=== PATIENT | male | born 1960 | race Caucasian/White ===

== ENCOUNTER 2024-11-18 11:17 | Day surgery (SDC) | payer BC, SELFPAY ==
--- NOTE | 2024-11-17 07:00 | EKG_ITS ---
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
[2024-11-17 16:32] VITALS: BMI 36.2
[2024-11-18] VITALS (14 sets, daily range): BP systolic 128–162; BP diastolic 107–126; PULSE 102–138; RESP 11–22; TEMP 36.6; O2SAT 92–95
[2024-11-18] MEDS: MIDAZOLAM INJ 1 MG/ML VIAL 2 ML 4 MG IV (12:08)
[2024-11-18] MEDS: fentaNYL CIT INJ 50 mCg/ML AMP 2ML 100 MCG IVP (12:08)
--- NOTE | 2024-11-18 13:19 | ESOP_ITS ---
RE: PREETI FRIEDMAN : 1960 DATE OF OPERATION: 11/18/2024 PROCEDURE PERFORMED: 1. Synchronized cardioversion. 2. Conscious sedation 30 minutes duration. DIAGNOSIS: Symptomatic atrial fibrillation. HISTORY AND INDICATIONS: The patient is a 64-year-old male with a history of hypertension. He has been having recurrent episodes of palpitations, shortness of breath, and new onset atrial fibrillation about 4 weeks ago. The patient was started on anticoagulation with Eliquis. I also gave him Cardizem 120 mg and metoprolol 25 mg b.i.d. for rate control. Continues to remain symptomatic with atrial fibrillation, moderate rapid ventricular response. Synchronized cardiovascular was recommended because of symptomatic atrial fibrillation. DESCRIPTION OF PROCEDURE: The patient was brought to the cardiac laboratory. Informed consent was obtained and the patient was given IV sedation with a total of 4 mg Versed and 100 mcg fentanyl, conscious sedation. Synchronized cardioversion performed by 125 joules of energy did not convert, subsequently 200 joules of energy given x2. Remain in atrial fibrillation rate 110 beats per minute. SUMMARY OF FINDINGS: Unsuccessful cardioversion. Inability to convert the patient back to sinus rhythm. RECOMMENDATIONS: Increase metoprolol dose to 50 mg twice daily and Cardizem CD to 240 mg daily for good rate control. Also, we will follow amiodarone 200 mg daily. We will recommend the patient to have ablation procedure for atrial fibrillation. We will refer to water jet operator Dr. Wiggins in [place]. DT: 12:32:12 TT: 13:17:00 Ref: [id number] - TID: [id number]
--- NOTE | 2024-11-18 16:36 | PC.NURSE ---
1326 patient is awake, alert, breathing unlabored, s/p cardioversion by Dr. Tran, Report received from Lyndsey NEW. Blood pressure elevated, Dr. Marc jose MD already talked to patient about increasing beta mello and deltiazem dose, no new orders at this time. OK to discharge patient home after 2hr recovery. 1455 patient is awake, alert, breathing unlabored, meets discharge criteria, discharge instructions given by Roxanne NEW to patient and family, pt discharged home in wheelchair with all belongings.
== END 2024-11-18 14:45 | disposition home or self-care (01) ==
LOC: S2EX 11:18 → SCCL 11:20
PROVIDERS: PCP Internal Medicine; Referring Provider Internal Medicine Cardiovascular Disease; Visit Provider Internal Medicine Cardiovascular Disease
PROC: 5A2204Z Restoration of Cardiac Rhythm, Single (ICD-10-PCS; CPT 92960; principal; 2024-11-18 11:30)
DX: I48.91 Unspecified atrial fibrillation (principal); Z79.01 Long term (current) use of anticoagulants; I10 Essential (primary) hypertension; Z01.810 Encounter for preprocedural cardiovascular examination
CPT/HCPCS: 92960; 93005; 99152; J2250; J3010

== ENCOUNTER 2024-12-03 17:31 | Inpatient (IN) | payer BC, SELFPAY ==
[2024-12-03] VITALS (22 sets, daily range): BP systolic 134–185; BP diastolic 109–152; PULSE 109–149; RESP 17–94; TEMP 37.5–37.7; O2SAT 95–96; BMI 35.2
--- NOTE | 2024-12-03 17:36 | EKG_ITS ---
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
--- NOTE | 2024-12-03 17:50 | XR_ITS ---
Examination: AP chest single view TECHNIQUE: AP portable upright chest single view Date and time: December 03, 2024, 1826 hours Comparison June 26, 2023 INDICATIONS: Shortness of breath beginning 2 days ago. FINDINGS: Mild CHF Moderate enlargement cardiac contour. Prominent vascular congestion with perihilar edema Edema and/or pneumonia at the right lung base Moderate osteopenia IMPRESSION: Mild CHF Edema versus pneumonia at the right lung base
--- NOTE | 2024-12-03 18:25 | PD.EDADULT ---
ED General RME/HPI General Chief complaint: Shortness of Breath/Dyspnea Stated complaint: SOB SWEATING FAST HEART RATE Time Seen by Provider: 12/03/24 17:47 Arrival date/time: 12/03/24 17:31 RME / HPI RME / HPI narrative: 64-year-old male with a history of atrial fibrillation, difficult to control, frequent RVR, failed cardiac ablation, who presents to the emergency department with persistent shortness of breath and tachycardia. He was seen with at his shake loader (Dr. Alysha Tran) office where echocardiogram shows new onset CHF. He also notes epigastric pain, epigastric discomfort. Shortness of breath is worse with lying. He has trace lower extremity edema as well. He currently denies chest pain, however if he has noted chest pain on occasion for the last several days. MD complaint: Shortness of breath Related Data Home Medications ?Medication ?Instructions ?Recorded ?Confirmed apixaban 5 mg tablet (Eliquis) 5 mg PO BID 11/17/24 11/17/24 Previous Rx's ?Medication ?Instructions ?Recorded diltiazem HCl 240 mg 240 mg PO QAM #90 caps 11/18/24 capsule,extended release 24 hr metoprolol tartrate 50 mg tablet 50 mg PO BID #90 tabs 11/18/24 Allergies Allergy/AdvReac Type Severity Reaction Status Date / Time NKA* Allergy Uncoded 12/03/24 17:34 Review of Systems Review of Systems Systems Reviewed: All systems reviewed, normal except as documented ED Exam Narrative Physical exam: GENERAL APPEARANCE: AxOx4, moderate ill-appearing, moderate respiratory distress, speaking for 5 word sentences HEENT: NC, AT. MMM. No sclericterus, no pallor HEART: Tachycardic and irregular, normal S1/S2, no m/r/g LUNGS: CTAB, moving air well. No crackles or wheezes are heard. ABDOMEN: Soft, nontender, nondistended with good bowel sounds heard. EXTREMITIES: Without cyanosis, clubbing, bilateral 2+ pitting edema. MUSCULOSKELETAL: FROM of all major joints, no chest tenderness NEUROLOGICAL: Grossly nonfocal. Alert and oriented, moving all 4 extremities. CN not formally tested but appear grossly intact. Observed to ambulate with normal gait. Skin: Warm and dry without any rash. Course Quality Measures none Orders Category Date Time Status COVID-19 Screening Questionnaire NOW Care 12/03/24 17:52 Active Decision to Admit X1 Care 12/03/24 17:52 Active EKG (ED ONLY) *Do not use* NOW Care 12/03/24 17:36 Completed EKG (ED Only) Stat Exams 12/03/24 17:36 Draft XR chest 1V Stat Exams 12/03/24 17:50 Ordered CBC Stat Lab 12/03/24 18:07 Received CMP [Comprehensive Metabolic Panel] Stat Lab 12/03/24 18:07 Received Magnesium Stat Lab 12/03/24 18:07 Received Magnesium Stat Lab 12/03/24 18:07 Received Partial Thromboplastin Time Stat Lab 12/03/24 18:07 Received Prothrombin Time with INR Stat Lab 12/03/24 18:07 Received Troponin I Stat Lab 12/03/24 18:07 Received Amiodarone 150 mg Ivpb [Nexterone Ivpb] Med 12/03/24 17:49 Discontinued 150 mg in 100 ml IV 600 mls/hr Amiodarone 360 mg Ivpb [Nexterone Ivpb] Med 12/03/24 23:48 Active 360 mg in 200 ml IV 16.667 mls/hr Amiodarone 360 mg Ivpb [Nexterone Ivpb] Med 12/03/24 17:48 Active 360 mg in 200 ml IV 33.333 mls/hr Bumetanide Inj [Bumex Inj] Med 12/03/24 17:49 Discontinued 2 mg IVP X1 ONE mg Hyd/Al Hyd/Roberto Susp [Maalox Susp] Med 12/03/24 18:02 Discontinued 30 ml PO X1 ONE Vital Signs Vital signs: Vital Signs Temperature 99.5 F 12/03/24 17:49 Pulse Rate 140 H 12/03/24 17:49 Respiratory Rate 20 12/03/24 17:49 Blood Pressure 134/112 H 12/03/24 17:49 Pulse Oximetry (%) 95 12/03/24 17:49 Oxygen Delivery Method Room Air 12/03/24 17:49 Discharge Plan Plan Patient Disposition: Admit Acute Care w/in Hospital Prescriptions/Referrals Prescriptions/Med Rec: No Action Eliquis 5 mg tablet 5 mg PO BID metoprolol tartrate 50 mg tablet 50 mg PO BID Qty: 90 2RF diltiazem HCl 240 mg capsule,extended release 24hr 240 mg PO QAM Qty: 90 2RF Referrals: Bruce Lorenzana MD [Primary Care Provider] - In 1 week Problem List Clinical Impression: Congestive heart failure, Atrial fibrillation with RVR Patient/Caregiver Discharge Instructions Education Materials: ED Atrial Fibrillation, ED CHF Left Side Print Language: Luxembourgish Stand Alone Forms: Rajani Award Info., Patient Portal Info Letter MDM Narrative [facility] hospital course: Mr. Owens is well-known to our cardiology team and Dr. Alysha Tran who is brought in for persistent atrial fibrillation with RVR, failed cardiac ablation, recent electrocardioversion now an office visit has new onset HF which bedside ultrasound shows an EF of 20%. He has orthopnea and shortness of breath consistent with new onset CHF. Patient was also seen immediately by Dr. Tran bedside and will take over care. EKG shows no acute findings, vital signs are otherwise stable. Laboratory testing was ordered, Cardiology recommendation. Started on amiodarone drip and diuresed with Bumex as per cardiology recommendation. Patient will be admitted to stepdown telemetry, and results and management has been handed over to cardiology Clinical Information Provided by patient and spouse other: Dr. Rj Tran Medical Records Reviewed [facility] Meds/Rx Considered, not Ordered None Labs/Rad/Tests considered, not Ordered None Chronic Illness/Social Conditions which may negatively complicate care or outcome(s)-explain: None or not applicable EKG EKG Interpretation narrative: Atrial fibrillation with RVR at 141, no acute ST or T wave changes Lab Interpretation Labs: see narrative above Imaging Imaging interpretation: see narrative above Medication Administration(s) Medication Administration History Amiodarone HCl/Dextrose (Nexterone Ivpb) 360 mg in 200 mls @ 33.333 mls/hr IV .Q6H ONE Stop: 12/03/24 23:47 Amiodarone HCl/Dextrose (Nexterone Ivpb) 360 mg in 200 mls @ 16.667 mls/hr IV .Q12H SONNY Stop: 12/04/24 23:47 Discontinued Medications Al Hydrox/Mg Hydrox/Simethicone (Mg Hyd/Al Hyd/Roberto (Maalox Reg) Susp 30 Ml Udc) 30 ml PO X1 ONE Stop: 12/03/24 18:03 Bumetanide (Bumetanide Inj 0.25 Mg/Ml Vial 4 Ml) 2 mg IVP X1 ONE Stop: 12/03/24 17:50 Amiodarone HCl/Dextrose (Nexterone Ivpb) 150 mg in 100 mls @ 600 mls/hr IV .Q10M ONE Stop: 12/03/24 17:58 As above Diagnosis Differential diagnosis: New onset CHF, atrial fibrillation with RVR, pneumonia Most likely dx, and/or detailed dx discussion: See below Dispositon Disposition: Admit
[2024-12-03 18:35] LABS: Basophils % (Auto) 1 % (0-2.5); Eosinophils # (Auto) 0.1 Thou/mm3 (0.0-0.5); Eosinophils % (Auto) 1 % (0-10); Hematocrit 41.9 % (41.0-53.0); Hemoglobin 14.5 g/dL (13.5-16.0); Immature Granulocytes % (Auto) 1 % (0-0); Immature Granulocytes Auto 0.07 Thou/mm3 (0.00-0.00); Lymphocytes # (Auto) 1.1 Thou/mm3 (1.0-4.8); Lymphocytes % (Auto) 19 % (10-50); Mean Corpuscular HGB Conc 34.6 g/dl (31.0-37.0); Mean Corpuscular Hemoglobin 31.3 pg (25.0-35.0); Mean Corpuscular Volume 90 fL (80-100); Monocytes # (Auto) 0.5 Thou/mm3 (0.0-0.8); Monocytes % (Auto) 9 % (0-12); Neutrophils # (Auto) 3.9 Thou/mm3 (1.8-7.7); Neutrophils % (Auto) 69 % (37-80); Nucleated Red Blood Cell % 0 /100 WBC (0); Platelet Count 196 Thou/mm3 (140-440); RDW Standard Deviation 49.8 fL (35.1-43.9); Red Blood Count 4.64 Miln/mm3 (4.50-5.90); White Blood Count 5.6 Thou/mm3 (3.8-10.6)
--- NOTE | 2024-12-03 18:44 | ECHO_ITS ---
Transthoracic Echo Report Ht (in): 75 Wt (lb): 282 Exam Location: Echo Lab Status: Emergency Meeting Facilitator: Arline Velez Indications: Procedure Performed: BP: 134 / 112 HR: 140 MEASUREMENTS (Male / Female) Normal Values 2D ECHO LV Diastolic Diameter PLAX 5.8 cm 4.2 - 5.9 / 3.9 - 5.3 cm LV Systolic Diameter PLAX 4.9 cm IVS Diastolic Thickness 1.1 cm 0.6 - 1.0 / 0.6 - 0.9 cm LVPW Diastolic Thickness 1.2 cm 0.6 - 1.0 / 0.6 - 0.9 cm LV Relative Wall Thickness 0.4 LVOT Diameter 2.3 cm LA Volume Index 36.6 cm?/m? 16 - 28 cm?/m? M-MODE Aortic Root Diameter MM 3.1 cm LA Systolic Diameter MM 5.2 cm LA Ao Ratio MM 1.7 AV Cusp Separation MM 2.2 cm DOPPLER AV Peak Velocity 84.1 cm/s AV Peak Gradient 2.8 mmHg AV Mean Gradient 2.0 mmHg AV Velocity Time Integral 14.1 cm LVOT Peak Velocity 56.9 cm/s LVOT Peak Gradient 1.3 mmHg LVOT Velocity Time Integral 11.2 cm LVOT Cardiac Index 2466.4 cm?/min?m? AV Area Cont Eq vti 3.3 cm? AV Area Cont Eq pk 2.8 cm? MV Area PHT 6.5 cm? MR Peak Velocity 305.0 cm/s MR Peak Gradient 37.2 mmHg Mitral E Point Velocity 68.4 cm/s TR Peak Velocity 271.5 cm/s TR Peak Gradient 29.5 mmHg PV Peak Velocity 95.0 cm/s PV Peak Gradient 3.6 mmHg FINDINGS Left Ventricle Dilated left venyricle with normal wall thickness. with severe global hypokinesisThe ejection fraction is visually estimated at 25%. Global left ventricular systolic function is severely decreased. Right Ventricle The right ventricular size is moderately increased. The right ventricular systolic function is mildly decreased. The estimated right ventricular systolic pressure, 48 mmHg. RAP 15. Left Atrium The left atrium is normal by two-dimensional, color flow and Doppler imaging with no structural abnormalities, no thrombus formation present. Right Atrium The right atrium is normal by two-dimensional imaging, color flow and Doppler imaging with no structural abnormalities, no thrombus formation present. Atrial Septum The interatrial septum appears normal with no evidence of a shunt. Aorta The aorta is normal by two-dimensional, color flow and Doppler interrogation. Mitral Valve Moderate mitral regurgitation. Aortic Valve The aortic valve is trileaflet and normal by two-dimensional, color flow and Doppler interrogation. There is no significant aortic valve regurgitation. Tricuspid Valve There is mild to moderate tricuspid valve regurgitation. Pulmonic Valve The pulmonic valve is not well visualized. There is no significant pulmonic valve regurgitation. Vessels Dilated inferior vena cava. Pericardium The pericardium is normal by two-dimensional imaging. There is no significant pericardial effusion. CONCLUSIONS Indication: CHF Dilated left ventrclw with severe global hypokinesis LVEF 25% Left atrium is dilated. The RV size is moderately increased. The RV systolic function is mildly decreased. The estimated RVSP, 48 mmHg. RAP 15. Moderate MR. Mild to moderate TR. Dilated IVC. Ruba Pearson (Electronically Signed) Final Date: 03 December 2024 22:40
[2024-12-03 18:47] LABS: Alanine Aminotransferase 11 U/L (10-49); Albumin, Serum 4.4 gm/dL (3.4-4.8); Albumin/Globulin Ratio 1.8 (1.2-2.2); Alkaline Phosphatase 89 U/L (46-116); Anion Gap 14 (7-16); Aspartate Amino Transferase 21 U/L (0-34); BUN/Creatinine Ratio 17 Ratio (12-20); Bilirubin,Total 1.1 mg/dL (0.3-1.2); Blood Urea Nitrogen 22 mg/dL (9-23); Calcium 9.3 mg/dL (8.3-10.6); Calcium (Corrected) 9.3 mg/dL (8.5-10.1); Chloride 101 mMol/L (98-107); Creatinine (Component) 1.3 mg/dL (0.6-1.3); Estimated Creatinine Clearance 83.8 mL/min (>60); Globulin 2.5 gm/dL (2.3-3.5); Glucose 125 mg/dL (74-106); Magnesium 2.1 mg/dL (1.6-2.6); Osmolality,Calculated 291 (275-295); Potassium 3.4 mMol/L (3.4-5.1); Sodium 144 mMol/L (136-145); Total Protein 6.9 gm/dL (5.7-8.2); eGFR > 60 See Note
[2024-12-03 19:19] LABS: INR 1.2 (0.9-1.3); Partial Thromboplastin Time 27.9 Seconds (22.0-36.0); Prothrombin Time 13.3 Seconds (9.0-12.2)
[2024-12-03] MEDS: MG HYD/AL HYD/SIME (Maalox Reg) SUSP 30 ML UDC PO (19:25)
[2024-12-03] MEDS: DIGOXIN INJ 0.25 MG/ML AMP 2 ML IVP (19:27)
[2024-12-03] MEDS: BUMETANIDE INJ 0.25 MG/ML VIAL 4 ML 2 MG IVP (19:31)
[2024-12-03 19:38] LABS: B-Type Natriuretic Peptide 575 pg/mL (0-100)
[2024-12-03] MEDS: METOPROLOL TARTRATE INJ 1 MG/ML AMP 5 ML 5 MG IVP (19:41)
[2024-12-03] MEDS: AMIODARONE 150 MG IVPB 150 MG/100 ML BAG 600 MG IV (19:44)
[2024-12-03] MEDS: AMIODARONE 360 MG IVPB 360 MG/200 ML BAG 33.333 MG IV (20:03)
--- NOTE | 2024-12-03 20:18 | ESCONSULT_ITS ---
RE: PREETI FRIEDMAN : 1960 DATE OF CONSULTATION: 12/03/2024 CONSULTING PHYSICIANS: Dr. Eugene Gomez, hospitalist. REASON FOR CONSULTATION: Evaluation of shortness of breath and congestive heart failure. HISTORY OF PRESENT ILLNESS: The patient is a 64-year-old male, well-known to me, who has longstanding hypertension for many years and hypercholesterolemia, who had a negative cardiac workup in 03/2024. Ejection fraction of 55%-60% on cardiac echo and negative nuclear scan. Went on to have shoulder replacement surgery in 08/2024 in [facility]. Subsequently, he did well until a month later in October the patient was seen by me in the office in October first week 11/10/2023 with severe shortness of breath and atrial fibrillation with rapid ventricular response. He was given rate control with metoprolol and diltiazem combination and the patient was also attempted cardioversion after 3 weeks of anticoagulation, last week of October, which was unsuccessful. Electrophysiology consult was obtained. Dr. Wiggins in [place] performed ablation for atrial fibrillation on 11/30/2024 at the [facility]. Subsequently, the patient could not convert to sinus rhythm. Atrial fibrillation persisted. The left atrium was dilated, and there was extensive scarring of the left atrium as well. Subsequently, the patient continued to have atrial fibrillation with rapid ventricular response. He was doing well until the last 3 days. He has had severe shortness of breath, unable to sleep, orthopnea, paroxysmal nocturnal dyspnea, and both lower extremities swelling. The patient was discharged home on amiodarone 200 mg twice daily, metoprolol 25 daily, and also was given Eliquis 5 mg twice daily. I saw him in the office today. He was found to be in acute decompensated heart failure with significant jugular venous distention and edema of the feet. I did a bedside echo that showed ejection fraction only 20-25%, dilated left ventricle, and severe global hypokinesis. I SENT HIM_ to the emergency room to start IV amiodarone and IV diuretics and treatment for acute decompensated heart failure. The patient did not have any chest pain. He has some abdominal discomfort and epigastric discomfort intermittently, but never had ischemic heart disease or coronary artery disease. ALLERGIES: NONE. MEDICATIONS: At home, Eliquis 5 mg b.i.d., metoprolol 25 mg daily, and he was on olmesartan, which was discontinued recently. Eliquis 5 mg b.i.d. Diltiazem was also discontinued. He also takes allopurinol 300 mg daily for gout. PAST MEDICAL HISTORY: Hypertension, longstanding gout, and on allopurinol and history of asthma. SURGICAL HISTORY: History of right knee replacement surgery. Recently had shoulder surgery, right shoulder replacement. FAMILY HISTORY: Family history was positive for cardiac arrhythmia. Mother and sister had cardiac arrhythmias. Mother also had cardiac issues. REVIEW OF SYSTEMS: Cardiovascular: Shortness of breath, orthopnea, and paroxysmal nocturnal dyspnea. Atypical chest discomfort. Gastrointestinal: History of abdominal bloating and nausea. Genitourinary: NEGATIVE____. Central Nervous System: No neurological deficits. PHYSICAL EXAMINATION: General: Well nourished, well-built male, alert, awake, in no acute distress. Vital Signs: Weight around 282 pounds. Height 63. Blood pressure 160/100. Pulse rate is 140, irregular atrial fibrillation. Respirations 18. Temperature normal. HEENT: Head is atraumatic, normocephalic. Eyes normal. ENT normal. NECK: Supple. JVD is present, 5 cm above sternal angle. Chest: Symmetric. Lungs: Decreased breath sounds, bilateral crackles at the bases. Heart: S1 and S2 irregular, atrial fibrillation and 2/6 systolic murmur heard. Abdomen: Slightly distended and soft. Extremities: Mild 2+ edema of both feet. Genitourinary and Rectal: Not performed. Neurologic: Alert and oriented x3. No focal deficits. DIAGNOSTIC DATA: Electrocardiogram showed atrial fibrillation with rapid ventricular response and nonspecific ST-T changes. lab Lab data is pending. Lab shows CBC is normal. Chemistry panel shows creatinine 1.3, BUN is 22, potassium 3.4, troponin is 0.45 (slightly elevated). BNP is pending. Chest x-ray showed mild pulmonary congestion. CARDIOMEGALY ASSESSMENT: 1. Acutely decompensated systolic heart failure. Ejection fraction 25% by bedside echo in my office. 2. 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 3. Elevated troponin level, possibly type 2 secondary to heart failure versus acute non-ST segment elevation myocardial infarction. 4. Atrial fibrillation, persistent for more than 2 months, resistant atrial fibrillation, difficult to cardiovert and post ablation remains in atrial fibrillation with rapid ventricular response. 5. Gout. RECOMMENDATIONS: The patient will be admitted on intensive telemetry floor. Serial enzymes will be obtained. Cardiac echo will be obtained for assessment of left ventricular function and mitral and aortic regurgitation. IV amiodarone bolus and protocol. Beta-mello, metoprolol 25 b.i.d. IV metoprolol to be given to reduce the heart rate. I will avoid diltiazem because of low ejection fraction. Start on valsartan 40 mg twice daily, increase to 80 mg twice daily and 160 mg twice daily, depending on the blood pressure readings and low-dose beta-blockers be continued. Digoxin 0.25 mg x1 and if the heart rate does not slow down, we will give one more dose and subsequently 125 mcg daily. iv NITROGLYCERIN and ICU LEVELCARE today We will also add spironolactone 25 mg daily starting tomorrow and monitor the patient closely. Enzymes will be obtained to rule out acute myocardial infarction NSTEMI. The patient probably will require right and left heart catheterization and coronary angiography once heart failure improves. DT: 19:24:36 TT: 20:00:00 Ref: [id number] - TID: [id number] MTDD
[2024-12-03] MEDS: METOPROLOL SUCCINATE XL 25 MG TABCR PO (21:19)
[2024-12-03] MEDS: POTASSIUM CHLORIDE 20 mEq TABCR PO (21:19)
[2024-12-03] MEDS: PANTOPRAZOLE 40 MG TABLET PO (21:19)
[2024-12-03] MEDS: VALSARTAN 40 MG TABLET PO (21:19)
[2024-12-03] MEDS: ENOXAPARIN SOD INJ 100 MG/ML SYRINGE SC (21:20)
--- NOTE | 2024-12-03 21:28 | ESHP_ITS ---
Documentation for date of: 12/03/24 [facility] History of Present Illness Chief complaint: shortness of breath History of present illness: 64-year-old male with past medical history of YONY, asthma, hypertension, A-fib who presented to the ED from Dr. Tran's office for shortness of breath. Apparently patient a few weeks ago had cardioversion due to A-fib however patient did not convert to sinus was then referred to have an ablation which also failed to control the A-fib then had another cardioversion which also failed to convert to sinus. Patient has been having progressive shortness of breath with bilateral leg swelling is unable to lay flat. He also noticed that his lower extremities have been swelling up more pronounced on the left compared to the right. He also endorses that he has been sleeping sitting upright as any tilting of the bed causes him to get short of breath. At this time patient denies headache, blurry vision, chest pain, nausea, vomiting, diarrhea, recent travel, sick contacts. Patient will be admitted for acute CHF exacerbation and the atrial fibrillation with RVR. ED course: ED vitals: BP 134/112, HR 140, saturating 95% on room air ED labs: CBC unremarkable, glucose 125, troponin 0.45, BNP 575, EKG shows A-fib with RVR PMHx: As above SX Hx: Right shoulder surgery, right knee replacement x 2 Social Hx: Denies cigarette use, denies illicit substances including THC, drinks alcohol socially last drink around 2 months ago FH X: Unknown Review of Systems Review of Systems Systems Reviewed: All systems reviewed, normal except as documented Narrative Review of Systems: All 12 systems reviewed and found normal unless otherwise stated in the HPI Exam Vital Signs Temp Pulse Resp BP Pulse Ox O2 Del Method 100 F 109 H 18 165/134 H 96 Room Air 12/03/24 19:08 12/03/24 21:19 12/03/24 19:57 12/03/24 21:19 12/03/24 19:08 12/03/24 19:08 Narrative Exam Physical Exam GENERAL: NAD, AAOx3, obese HEENT: Moist mucosa. Eyes open, symmetrical, & clear CARDIO: Heart RRR, no obvious murmurs PULM: No noted coughing/dyspnea CTA B/L, no R/W/R GI: Abdomen soft, nondistended, no pain on palpation. BSx4 SKIN/MSK/EXT: +2 bilateral lower extremity edema up to the ankle, more swelling in the left lower extremity compared to the right, no pain on palpation. Pedal pulses present B/L NEURO: AAOx3, no focal neuro deficits, able to move all 4 extremities Results: Labs 12/03/24 18:07 12/03/24 18:07 Labs: Short CBC 12/03/24 Range/Units 18:07 WBC 5.6 (3.8-10.6) Thou/mm3 Hgb 14.5 (13.5-16.0) g/dL Hct 41.9 (41.0-53.0) % Plt Count 196 (140-440) Thou/mm3 BMP 12/03/24 18:07 Sodium 144 Potassium 3.4 Chloride 101 Carbon Dioxide 29.0 BUN 22 Creatinine 1.3 Glucose 125 H Calcium 9.3 Cardiac Enzymes 12/03/24 Range/Units 18:07 Troponin I 0.450 H* (0.0-0.045) ng/mL Liver Function 12/03/24 Range/Units 18:07 Total Bilirubin 1.1 (0.3-1.2) mg/dL AST 21 (0-34) U/L ALT 11 (10-49) U/L Alkaline Phosphatase 89 (46-116) U/L Albumin 4.4 (3.4-4.8) gm/dL Quality Measures Quality Measures none Medications Home Medications and Allergies Home Medications ?Medication ?Instructions ?Recorded ?Confirmed ?Type apixaban 5 mg tablet (Eliquis) 5 mg PO BID 11/17/24 History Allergies Allergy/AdvReac Type Severity Reaction Status Date / Time zolpidem (From Ambien) Allergy Mild panic Verified 12/04/24 02:30 attacks NKA* Allergy Uncoded 12/04/24 02:30 Visit Medications Acetaminophen (Acetaminophen 325 Mg Tablet) 650 mg PO Q4HR PRN PRN Reason: PAIN SCALE 1-3 (mild Stop: 01/02/25 18:47 Al Hydrox/Mg Hydrox/Simethicone (Mg Hyd/Al Hyd/Roberto (Maalox Reg) Susp 30 Ml Udc) 30 ml PO Q4HR PRN PRN Reason: Heartburn or Upset Stomach Stop: 01/02/25 18:47 Bumetanide (Bumetanide Inj 0.25 Mg/Ml Vial 4 Ml) 2 mg IVP BID SONNY Stop: 01/03/25 08:59 Digoxin (Digoxin Inj 0.25 Mg/Ml Amp 2 Ml) 0.125 mg IVP QDAY SONNY Stop: 01/03/25 08:59 Enoxaparin Sodium (Enoxaparin Sod Inj 100 Mg/Ml Syringe) 100 mg SC BID SONNY Stop: 12/17/24 20:59 Last Admin: 12/03/24 21:20 Dose: 100 mg Amiodarone HCl/Dextrose (Nexterone Ivpb) 360 mg in 200 mls @ 33.333 mls/hr IV .Q6H ONE Stop: 12/03/24 23:47 Last Admin: 12/03/24 20:03 Dose: 33.333 mls/hr Amiodarone HCl/Dextrose (Nexterone Ivpb) 360 mg in 200 mls @ 16.667 mls/hr IV .Q12H SONNY Stop: 12/04/24 23:47 Metoprolol Succinate (Metoprolol Succinate Xl 25 Mg Tabcr) 25 mg PO BID SONNY Stop: 01/02/25 20:59 Last Admin: 12/03/24 21:19 Dose: 25 mg Metoprolol Tartrate (Metoprolol Tartrate Inj 1 Mg/Ml Amp 5 Ml) 5 mg IVP PRN PRN PRN Reason: Heart Rate- High Pantoprazole Sodium (Pantoprazole 40 Mg Tablet) 40 mg PO HS SONNY Stop: 01/02/25 20:59 Last Admin: 12/03/24 21:19 Dose: 40 mg Potassium Chloride (Potassium Chloride 20 Meq Tabcr) 20 meq PO BID OSNNY Stop: 01/02/25 20:59 Last Admin: 12/03/24 21:19 Dose: 20 meq Valsartan (Valsartan 40 Mg Tablet) 40 mg PO BID SONNY Stop: 01/02/25 20:59 Last Admin: 12/03/24 21:19 Dose: 40 mg Zolpidem Tartrate (Zolpidem 5 Mg Tablet) 10 mg PO HS PRN PRN Reason: INSOM Stop: 01/02/25 20:59 Discontinued Medications Al Hydrox/Mg Hydrox/Simethicone (Mg Hyd/Al Hyd/Roberto (Maalox Reg) Susp 30 Ml Udc) 30 ml PO X1 ONE Stop: 12/03/24 18:03 Last Admin: 12/03/24 19:25 Dose: 30 ml Bumetanide (Bumetanide Inj 0.25 Mg/Ml Vial 4 Ml) 2 mg IVP X1 ONE Stop: 12/03/24 17:50 Last Admin: 12/03/24 19:31 Dose: 2 mg Digoxin (Digoxin Inj 0.25 Mg/Ml Amp 2 Ml) 0.25 mg IVP X1 ONE Stop: 12/03/24 18:44 Last Admin: 12/03/24 19:27 Dose: 0.25 mg Amiodarone HCl/Dextrose (Nexterone Ivpb) 150 mg in 100 mls @ 600 mls/hr IV .Q10M ONE Stop: 12/03/24 17:58 Last Infusion: 12/03/24 20:05 Dose: Infused Metoprolol Tartrate (Metoprolol Tartrate Inj 1 Mg/Ml Amp 5 Ml) 5 mg IVP X1 ONE Stop: 12/03/24 19:09 Metoprolol Tartrate (Metoprolol Tartrate Inj 1 Mg/Ml Amp 5 Ml) 5 mg IVP X1 ONE Stop: 12/03/24 19:31 Last Admin: 12/03/24 19:41 Dose: 5 mg Assessment & Plan Plan 64-year-old male with past medical history as stated above who presented to the ED due to progressive shortness of breath from 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 Patient will be admitted for acute CHF exacerbation and atrial fibrillation with RVR #Acute decompensated heart failure exacerbation #Heart failure with reduced ejection fraction [EF 25%] #Atrial fibrillation with RVR #Elevated troponins #Hypertensive urgency Presented with clinical signs such as shortness of breath, dyspnea on exertion, bilateral leg swelling, Initial blood pressure 134/112, HR 140, EKG shows afib with rvr ~130s NYHA class: 4, BNP: 575 Last echo:Dilated left ventrclw with severe global hypokinesis LVEF 25% Left atrium is dilated. The RV size is moderately increased. The RV systolic function is mildly decreased. The estimated RVSP, 48 mmHg. RAP 15. Moderate MR. Mild to moderate TR. Dilated IVC. ? Amiodarone drip ? Bumex 2 mg IV twice daily ? Metoprolol 25 mg daily ? Lovenox 1 mg/kg ? Spironolactone 25 mg daily ? Pending right and left cardiac cath ? Valsartan 40 mg ? Avoid diltiazem due to low EF ? Digoxin 0.25 IV, 0.125 starting tomorrow as per cardiology recs ? Keep K>4, Mg>2 ? Provide oxygen as required ? Strict I's and O's ? Fluid restriction ?Ultrasound bilateral lower extremities #YONY #Hypertension #Asthma Health Maintenance: Disposition: Telemetry, possible ICU upgrade Fluids: None Feeding: Cardiac Thrombo prophylaxis: Lovenox Gastric Ulcer prophylaxis: None CODE STATUS: Full code Case discussed with my attending Dr. Jason King MD PGY-1 Attending Provider Attestation/Addendum I have examined the patient, reviewed labs and imaging findings, discussed the case with the resident(s), and reviewed entered orders. I agree with the plan of care as outlined in this note, with these additional summaries/recommendations: 64-year-old male with past medical history of hypertension, A-fib refractory to several cardioversion attempts and recent ablation presented to the ED after sent by cardiology with complaint of KHAN, orthopnea. In the ER patient found to be in A-fib RVR with rate up to 140s and elevated blood pressure. Patient initiated on amiodarone drip, valsartan 80 twice daily, Bumex 2 mg IV twice daily, metoprolol 25 twice daily, metoprolol pushes 5 mg as needed, digoxin 0.25 loading dose with 0.125 IV daily, Lovenox therapeutic dose twice daily. Echo showed new onset HFrEF with EF of 25%, will initiate on goal-directed medical therapy as tolerated. Patient will likely require angiography for further workup and evaluation of refractory A-fib and new onset CHF. Continue close monitoring for now and telemetry. Eugene Gomez MD
--- NOTE | 2024-12-03 21:52 | PC.RT ---
bipap order for bipap received. contacted MD to address concerns given hemodynamic instability and gastric distention/pain. MD and pt aware and agreeable to hold bipap/cpap at this time.
[2024-12-03] MEDS: ZOLPIDEM 5 MG TABLET 10 MG PO (21:53)
[2024-12-03] MEDS: Nitroglycerin/D5w 50 MG IVPB 50 MG/250 ML BTL IV (22:35)
[2024-12-03] MEDS: ENALAPRILAT INJ 1.25 MG/ML VIAL IVP (23:45)
[2024-12-04] VITALS (162 sets, daily range): BP systolic 108–183; BP diastolic 82–145; PULSE 85–149; RESP 5–35; TEMP 36.1–36.4; O2SAT 90–99; BMI 34.9
--- NOTE | 2024-12-04 | XR_ITS ---
Examination: Venous duplex lower extremity sonogram, bilateral. Date and time of exam: December 04, 2024 0728 hours INDICATIONS: Bilateral leg swelling and pain one year Technique: Multiple sonographic images of the deep venous system have been obtained. B-mode/2-D grayscale imaging of vascular structures and Doppler spectral analysis (waveforms) and color performed Both legs are examined. Findings: Deep venous systems do not demonstrate abnormal echogenicity. All visualized deep veins exhibit compressibility. All visualized deep veins exhibit augmentation. Impression: Negative for deep vein thrombosis
[2024-12-04] MEDS: LORazepam 0.5 MG TABLET 1 MG PO (01:50)
[2024-12-04] MEDS: AMIODARONE 360 MG IVPB 360 MG/200 ML BAG 16.667 MG IV ×2 (02:16→14:34)
[2024-12-04 05:39] LABS: Basophils % (Auto) 1 % (0-2.5); Eosinophils # (Auto) 0.1 Thou/mm3 (0.0-0.5); Eosinophils % (Auto) 1 % (0-10); Hematocrit 42.4 % (41.0-53.0); Hemoglobin 14.1 g/dL (13.5-16.0); Immature Granulocytes % (Auto) 1 % (0-0); Immature Granulocytes Auto 0.06 Thou/mm3 (0.00-0.00); Lymphocytes # (Auto) 1.4 Thou/mm3 (1.0-4.8); Lymphocytes % (Auto) 22 % (10-50); Mean Corpuscular HGB Conc 33.3 g/dl (31.0-37.0); Mean Corpuscular Hemoglobin 31.3 pg (25.0-35.0); Mean Corpuscular Volume 94 fL (80-100); Monocytes # (Auto) 0.6 Thou/mm3 (0.0-0.8); Monocytes % (Auto) 9 % (0-12); Neutrophils # (Auto) 4.3 Thou/mm3 (1.8-7.7); Neutrophils % (Auto) 66 % (37-80); Nucleated Red Blood Cell % 0 /100 WBC (0); Platelet Count 149 Thou/mm3 (140-440); RDW Standard Deviation 52.3 fL (35.1-43.9); White Blood Count 6.6 Thou/mm3 (3.8-10.6)
[2024-12-04 06:13] LABS: Alanine Aminotransferase 7 U/L (10-49); Albumin, Serum 4.3 gm/dL (3.4-4.8); Alkaline Phosphatase 80 U/L (46-116); Anion Gap 13 (7-16); Aspartate Amino Transferase 22 U/L (0-34); BUN/Creatinine Ratio 15 Ratio (12-20); Bilirubin,Total 0.7 mg/dL (0.3-1.2); Blood Urea Nitrogen 20 mg/dL (9-23); Calcium 9.6 mg/dL (8.3-10.6); Calcium (Corrected) 9.6 mg/dL (8.5-10.1); Carbon Dioxide 25.6 mMol/L (20.0-31.0); Chloride 99 mMol/L (98-107); Creatinine (Component) 1.3 mg/dL (0.6-1.3); Estimated Creatinine Clearance 83.8 mL/min (>60); Globulin 2.1 gm/dL (2.3-3.5); Glucose 122 mg/dL (74-106); Magnesium 2.1 mg/dL (1.6-2.6); Osmolality,Calculated 279 (275-295); Phosphorous 5.6 mg/dL (2.4-5.1); Potassium 3.2 mMol/L (3.4-5.1); Sodium 138 mMol/L (136-145); Total Protein 6.4 gm/dL (5.7-8.2); eGFR > 60 See Note
[2024-12-04 06:17] LABS: Troponin I 0.383 ng/mL (0.0-0.045)
[2024-12-04] MEDS: Nitroglycerin/D5w 50 MG IVPB 50 MG/250 ML BTL 54 MG IV (07:50)
[2024-12-04] MEDS: SPIRONOLACTONE 25 MG TABLET PO ×2 (08:21→21:17)
[2024-12-04] MEDS: BUMETANIDE INJ 0.25 MG/ML VIAL 4 ML 2 MG IVP ×2 (08:22→19:41)
[2024-12-04] MEDS: POTASSIUM CHLORIDE 20 mEq TABCR PO ×2 (08:23→21:22)
[2024-12-04] MEDS: VALSARTAN 40 MG TABLET 80 MG PO (08:23)
[2024-12-04] MEDS: METOPROLOL SUCCINATE XL 25 MG TABCR PO ×2 (08:23→09:06)
[2024-12-04] MEDS: DIGOXIN INJ 0.25 MG/ML AMP 2 ML 0.125 MG IVP (08:24)
[2024-12-04] MEDS: ENOXAPARIN SOD INJ 100 MG/ML SYRINGE SC ×2 (08:24→21:17)
[2024-12-04] MEDS: ACETAMINOPHEN 325 MG TABLET 650 MG PO ×2 (08:39→14:28)
[2024-12-04] MEDS: VALSARTAN 80 MG TABLET PO (09:06)
--- NOTE | 2024-12-04 09:12 | ESPR_ITS ---
<Statement entered by Mary Tran MD - 12/04/24 23:11> I evaluated the patient with resident team and agree with treatment plan, see my dictated note as well Documentation for date of: 12/04/24 Subjective Subjective Interval history: Patient was seen and examined at bedside this AM. No acute events overnight. Dr Tran following closely, appreciate recommendations for cardiac optimization. Patient tolerating diet, adequate urine output and mentation is at baseline. Patient endorses improvement of shortness of breath, minimal dyspnea on laying flat. Otherwise comfortable. Per Cardiology recommendations, will titrate off of Nitro gtt and increase patients Valsartan + Metoprolol XL for BP control. Will continue diuresis. PRN Metoprolol tartrate and Enaliprat on board. Patient denies any chest pain, discomfort or other systemic symptoms at this time. Exam Vital Signs Temp Pulse Resp BP Pulse Ox O2 Del Method 100 F 93 16 132/112 H 95 Room Air 12/03/24 19:08 12/04/24 09:06 12/04/24 06:46 12/04/24 09:06 12/04/24 06:46 12/03/24 19:08 Narrative Exam Constitutional Alert, oriented x3 and comfortable. BMI 35 HEENT Vision grossly intact. Patent nares. Trachea midline. On 2L oxygen via NC, sats 96-97% Respiratory Chest normal on inspection and mild congestion on auscultation. Cardiovascular S1 and S2 audible, RRR. No murmurs or carotid bruit. No gross JVD. Abdominal Soft, distended and BS + ; non tender to palpation in all quadrants. Genitourinary No bladder tenderness, no flank pain. Normal to palpation. Musculoskeletal Extremities tone within normal limits. 1+ LE edema upto lower tibia/ankles. Neurological CN II - XII grossly intact. Extremity motor and sensation grossly intact. Skin Warm, dry and intact. No apparent lesions. Psychiatric Patient has a good affect, is cooperative. Objective Labs 12/04/24 04:35 12/04/24 04:35 Labs: Laboratory Results - last 24 hr 12/03/24 12/03/24 12/04/24 18:07 18:07 04:35 WBC 5.6 6.6 RBC 4.64 4.50 Hgb 14.5 14.1 Hct 41.9 42.4 MCV 90 94 MCH 31.3 31.3 MCHC 34.6 33.3 RDW Std Deviation 49.8 H 52.3 H Plt Count 196 149 D Neut % (Auto) 69 66 Lymph % (Auto) 19 22 [place] % (Auto) 9 9 Eos % (Auto) 1 1 Baso % (Auto) 1 1 Neut # (Auto) 3.9 4.3 Lymph # (Auto) 1.1 1.4 [place] # (Auto) 0.5 0.6 Eos # (Auto) 0.1 0.1 Baso # (Auto) 0.0 0.0 Immature Gran # (Auto) 0.07 H 0.06 H Absolute Nucleated RBC 0.00 0.00 Immature Gran % 1 H 1 H Nucleated RBC % 0 0 PT 13.3 H INR 1.2 APTT 27.9 Sodium 144 138 Potassium 3.4 3.2 L Chloride 101 99 Carbon Dioxide 29.0 25.6 Anion Gap 14 13 BUN 22 20 Creatinine 1.3 1.3 Estim Creat Clear Calc 83.8 83.8 eGFR > 60 > 60 BUN/Creatinine Ratio 17 15 Glucose 125 H 122 H Calculated Osmolality 291 279 Calcium 9.3 9.6 Corrected Calcium 9.3 9.6 Phosphorus 5.6 H Magnesium 2.1 Cancelled 2.1 Total Bilirubin 1.1 0.7 AST 21 22 ALT 11 7 L Alkaline Phosphatase 89 80 Troponin I 0.450 H* 0.383 H* B-Natriuretic Peptide 575 H* Total Protein 6.9 6.4 Albumin 4.4 4.3 Globulin 2.5 2.1 L Albumin/Globulin Ratio 1.8 2.0 Quality Measures Quality Measures none Assessment & Plan Assessment Current Active Medications: Generic Name Dose Route Start Last Admin Trade Name Freq PRN Reason Stop Dose Admin Acetaminophen 650 mg 12/03/24 18:48 12/04/24 08:39 Acetaminophen 325 Mg Tablet PO 01/02/25 18:47 650 mg Q4HR PRN Administration PAIN SCALE 1-3 (mild Al Hydrox/Mg Hydrox/Simethicone 30 ml 12/03/24 18:48 Mg Hyd/Al Hyd/Roberto (Maalox Reg) Susp 30 Ml Udc PO 01/02/25 18:47 Q4HR PRN Heartburn or Upset Stomach Bumetanide 2 mg 12/04/24 09:00 12/04/24 08:22 Bumetanide Inj 0.25 Mg/Ml Vial 4 Ml IVP 01/03/25 08:59 2 mg BID SONNY Administration Digoxin 0.125 mg 12/04/24 09:00 12/04/24 08:24 Digoxin Inj 0.25 Mg/Ml Amp 2 Ml IVP 01/03/25 08:59 0.125 mg QDAY SONNY Administration Enalaprilat 1.25 mg 12/04/24 00:00 12/04/24 06:31 Enalaprilat Inj 1.25 Mg/Ml Vial IVP 01/03/25 00:00 Not Given Q6HR SONNY Enoxaparin Sodium 100 mg 12/03/24 21:00 12/04/24 08:24 Enoxaparin Sod Inj 100 Mg/Ml Syringe SC 12/17/24 20:59 100 mg BID SONNY Administration Amiodarone HCl/Dextrose 360 mg in 200 mls @ 16.667 mls/hr 12/03/24 23:48 12/04/24 02:16 Nexterone Ivpb IV 12/04/24 23:47 16.667 mls/hr .Q12H SONNY Administration Nitroglycerin/Dextrose 50 mg in 250 mls @ 1.5 mls/hr 12/03/24 22:32 12/04/24 08:37 Nitroglycerin In D5w Ivpb IV 01/02/25 22:31 0 mcg/min .Q24H PRN 0 mls/hr PER PROTOCOL Titration Protocol 5 MCG/MIN Metoprolol Succinate 50 mg 12/04/24 21:00 Metoprolol Succinate Xl 25 Mg Tabcr PO 01/03/25 20:59 BID SONNY Metoprolol Tartrate 5 mg 12/03/24 19:11 Metoprolol Tartrate Inj 1 Mg/Ml Amp 5 Ml IVP PRN PRN Heart Rate- High Pantoprazole Sodium 40 mg 12/03/24 21:00 12/03/24 21:19 Pantoprazole 40 Mg Tablet PO 01/02/25 20:59 40 mg HS SONNY Administration Potassium Chloride 20 meq 12/03/24 21:00 12/04/24 08:23 Potassium Chloride 20 Meq Tabcr PO 01/02/25 20:59 20 meq BID SONNY Administration Spironolactone 25 mg 12/04/24 09:00 12/04/24 08:21 Spironolactone 25 Mg Tablet PO 01/03/25 08:59 25 mg BID SONNY Administration Temazepam 30 mg 12/04/24 21:00 Temazepam 15 Mg Capsule PO 12/09/24 20:59 HS PRN INSOMNIA Valsartan 160 mg 12/04/24 21:00 Valsartan 40 Mg Tablet PO 01/03/25 20:59 BID SONNY Plan Mr Owens is a 64-year-old male with PMH of longstanding hypertension and hypercholesterolemia. Last cardiac workup in 03/2024 was negative, LVEF 55%-60% on echo and negative nuclear scan. He was started on metoprolol and diltiazem combination for new onset atrial fibrillation with rapid ventricular response. Sensitometrist Dr. Wiggins in [place] performed ablation for atrial fibrillation on 11/30/2024 at the [facility]. Atrial fibrillation persisted due to left atrium dilation and extensive scarring. 3 days ago patient started developing severe shortness of breath, unable to sleep, orthopnea, paroxysmal nocturnal dyspnea, and both lower extremities swelling. He was sent to the ED from Dr Tran's office, for acute decompensated heart failure. He was started on IV amiodarone and IV diuretics and treatment for acute decompensated heart failure. Acute decompensated heart failure exacerbation, HFrEF 25% Atrial fibrillation with RVR Type II NSTEMI, troponinemia Hypertensive urgency - Presented with clinical signs such as shortness of breath, dyspnea on exertion, bilateral leg swelling. - Mar 2024: cardiac workup negative, LVEF 55%-60% on echo and negative nuclear scan. - October 2023: New onset AFib RVR, started on metoprolol and diltiazem combination, followed by unsuccessful cardioversion after 3 weeks of AC - November 2023: Sensitometrist Dr. Wiggins in [place] performed ablation for atrial fibrillation on 11/30/2024 at the [facility]. - 2023 - 2024: amiodarone 200 mg twice daily, metoprolol 25 daily, and also was given Eliquis 5 mg twice daily On this admission, - Initial blood pressure 134/112, HR 140 - Bedside echo : ejection fraction only 20-25% - EKG shows afib with rvr ~130s - NYHA class: 4, BNP: 575 - ECHO: Dilated left ventricle with severe global hypokinesis LVEF 25%. Left atrium dilated. The RV size moderately increased. RV systolic function mildly decreased. Estimated RVSP 48 mmHg. RAP 15. Moderate MR. Mild to moderate TR. Dilated IVC. - Patient has some abdominal discomfort and epigastric discomfort intermittently, but never had ischemic heart disease or coronary artery disease. - CHADsVASc score = 3 ; 3.2% stroke risk annually - HASBLED score = 2 ; Moderate risk of major bleeding - Total output : Net negative 500-600mL overnight Plan: - Cardiology Dr Tran on board as primary, recommendations appreciated - BP control: Valsartan 80 --> 160mg BID + Enaiprat 1.25mg IV q6H - Rhythm control: Amiodarone drip x3 bags. Currently running last bag. - Rate control: Metoprolol 25 -> 50 mg PO daily + Digoxin 0.25 IV qD - Anticoagulation: Eliquis 5 mg PO BiD - Continue KCL 20mEq daily to keep K>4, Mg>2 - Continue Bumex 2 mg IV twice daily - Strict IO charting + Daily weight - Diet: Cardiac with fluid restriction - PRN Meto tartrate 5mg for HR >110 - Will titrate off of Nitro gtt 5-10mcg/hr with close montioring of BP. YONY Obesity BMI 35 Chronic Insomnia Seasonal Asthma s/p shoulder replacement surgery in 08/2024 in [facility] - Hx of sleep apnea and insomnia - Patient did not tolerate Zolpidem 10mg HS Plan: - Started on Temazepam 30mg HS PRN - Consider CPAP at night - Hold off on beta agonists as risk of tachycardia Health maintenance: Disposition: Admitted to ICU for close monitoring on Nitro gtt. Anticipate downgrade to medical floors in 24-48 hours. Diet: Cardiac w/ fluid restriction Lines: pIVs GI Prophylaxis: Thrombo Prophylaxis: Code status: FULL CODE Plan of care discussed with attending Dr Tran, - Kt Diaz M.D. PGY2 Disclaimer: Minor errors in medical transcription editor may be present as this note was dictated using voice recognition software.
[2024-12-04] MEDS: ENALAPRILAT INJ 1.25 MG/ML VIAL IVP ×2 (11:02→17:17)
--- NOTE | 2024-12-04 12:00 | PC.SS ---
Initial assessment: patient is a 64-year old male admitted to ICU for acute CHF. Patient was able to confirm his demographic information. Patient informs living with spouse Marilia Owens at home. Patient identified his Marilia as his emergency contact or sister Jacquelin listed on facesheet. Patient reports he receives help from his Marilia at home in completing his ADL's. Patient reports using a CPAP machine during the night time at home. Patient reports his PCP is Bruce Lorenzana. patient informs he also is followed by flight attendant/inflight supervisor, Dr. Soria. Pharmacy of choice is [facility] on [address]. Patient reports the plan is to return when medically cleared for discharge, informs his family will transport home. Patient was provided with community resource handout and information. Patient was receptive to the resources. No needs identified at this time. D/c plan: home Next of kin: spouseMarilia
[2024-12-04] MEDS: METOPROLOL TARTRATE INJ 1 MG/ML AMP 5 ML 5 MG IVP ×2 (14:19→15:14)
[2024-12-04] MEDS: POTASSIUM CHLORIDE 20 mEq TABCR 40 MEQ PO (14:42)
[2024-12-04] MEDS: Magnesium Sulfate 2 GM Ivpb 2 GM/50 ML BAG IV (14:43)
--- NOTE | 2024-12-04 14:53 | PC.SS ---
SS update: per medical team note, patient is pending cardiology recommendations and continued diereses.
[2024-12-04] MEDS: amLODIPine BESYLATE 5 MG TABLET PO (16:46)
[2024-12-04] MEDS: PANTOPRAZOLE 40 MG TABLET PO (21:16)
[2024-12-04] MEDS: VALSARTAN 40 MG TABLET 160 MG PO (21:18)
[2024-12-04] MEDS: METOPROLOL SUCCINATE XL 25 MG TABCR 50 MG PO (21:20)
[2024-12-04] MEDS: TEMAZEPAM 15 MG CAPSULE 30 MG PO (21:33)
[2024-12-05] VITALS (137 sets, daily range): BP systolic 102–177; BP diastolic 80–140; PULSE 84–131; RESP 12–97; TEMP 36.1–36.8; O2SAT 83–98; BMI 35.0
[2024-12-05] MEDS: ENALAPRILAT INJ 1.25 MG/ML VIAL IVP ×4 (00:17→18:37)
--- NOTE | 2024-12-05 02:04 | ESPR_ITS ---
RE: PREETI FRIEDMAN : 1960 DATE OF SERVICE: 12/04/2024 SUBJECTIVE: Preeti Friedman is a 65-year-old male with history of paroxysmal atrial fibrillation, chronic, persistent for few months, developed possible tachycardic cardiomyopathy with ischemic cardiomyopathy and troponin elevation, possibly from congestive heart failure, possible NSTEMI, still having difficulty controlling hypertension, was given nitroglycerin overnight, now improved blood pressure still 140/100, increased the metoprolol to 50 mg b.i.d. and Diovan to 160 mg and also continued on nitroglycerin drip, titrating for blood pressure _ also started, but did not improve. The patient continues to have some anxiety, shortness of breath with history of sleep apnea, placed on CPAP. He is clinically not having any chest pain at this time, but shortness of breath is still present. The venous duplex exam was performed because of leg swelling. As expected, there is no DVT. Edema has resolved almost completely. LABORATORY DATA: Shows a slightly low potassium levels, which is corrected. CBC showed hemoglobin of 14. Chemistry panel shows BUN and creatinine normal. Enzymes, troponin continues to be slightly elevated at 0.45 yesterday, 0.38 today. BNP was elevated as well. DIAGNOSTIC DATA: Chest x-ray showed mild pulmonary congestion, cardiomegaly. IMPRESSION: 1. Acutely decompensated systolic heart failure, ejection fraction 25%. 2. Ischemic versus nonischemic cardiomyopathy with troponin elevation. 3. Atrial fibrillation with rapid ventricular response, possible tachycardic cardiomyopathy, controlled well on amiodarone. 4. Hypertension, difficult to control. RECOMMENDATIONS: 1. Continue present medical management. Add amlodipine 5 mg daily as well in addition to Valsartan 160 b.i.d. and metoprolol succinate 50 mg b.i.d. 2. We will continue to monitor the patient closely in intensive care unit today. Change it to positive telemetry status tomorrow depending on the patient's condition. 3. The patient's other comorbid conditions include sleep apnea syndrome requiring CPAP. The reason the patient is in ICU is because of instability of blood pressure and heart rate as well as requirement of IV nitroglycerin today. DT: 23:09:45 TT: 01:57:00 Ref: [id number] - TID: [id number] [facility]
[2024-12-05 05:48] LABS: Basophils % (Auto) 1 % (0-2.5); Eosinophils # (Auto) 0.1 Thou/mm3 (0.0-0.5); Eosinophils % (Auto) 1 % (0-10); Hematocrit 44.8 % (41.0-53.0); Immature Granulocytes % (Auto) 1 % (0-0); Immature Granulocytes Auto 0.06 Thou/mm3 (0.00-0.00); Lymphocytes # (Auto) 1.1 Thou/mm3 (1.0-4.8); Lymphocytes % (Auto) 18 % (10-50); Mean Corpuscular HGB Conc 33.5 g/dl (31.0-37.0); Mean Corpuscular Hemoglobin 31.2 pg (25.0-35.0); Mean Corpuscular Volume 93 fL (80-100); Monocytes # (Auto) 0.6 Thou/mm3 (0.0-0.8); Monocytes % (Auto) 9 % (0-12); Neutrophils # (Auto) 4.5 Thou/mm3 (1.8-7.7); Neutrophils % (Auto) 71 % (37-80); Nucleated Red Blood Cell % 0 /100 WBC (0); Platelet Count 176 Thou/mm3 (140-440); RDW Standard Deviation 51.8 fL (35.1-43.9); Red Blood Count 4.81 Miln/mm3 (4.50-5.90); White Blood Count 6.3 Thou/mm3 (3.8-10.6)
[2024-12-05 06:19] LABS: Alanine Aminotransferase 7 U/L (10-49); Albumin, Serum 4.6 gm/dL (3.4-4.8); Albumin/Globulin Ratio 1.9 (1.2-2.2); Alkaline Phosphatase 87 U/L (46-116); Anion Gap 13 (7-16); BUN/Creatinine Ratio 18 Ratio (12-20); Bilirubin,Total 0.9 mg/dL (0.3-1.2); Blood Urea Nitrogen 23 mg/dL (9-23); Carbon Dioxide 26.8 mMol/L (20.0-31.0); Chloride 98 mMol/L (98-107); Creatinine (Component) 1.3 mg/dL (0.6-1.3); Estimated Creatinine Clearance 83.5 mL/min (>60); Globulin 2.4 gm/dL (2.3-3.5); Glucose 110 mg/dL (74-106); Magnesium 2.3 mg/dL (1.6-2.6); Osmolality,Calculated 280 (275-295); Phosphorous 5.6 mg/dL (2.4-5.1); Potassium 3.4 mMol/L (3.4-5.1); Sodium 138 mMol/L (136-145); eGFR > 60 See Note
[2024-12-05] MEDS: ENOXAPARIN SOD INJ 100 MG/ML SYRINGE SC ×2 (08:28→20:49)
[2024-12-05] MEDS: BUMETANIDE INJ 0.25 MG/ML VIAL 4 ML 2 MG IVP ×2 (08:28→20:37)
[2024-12-05] MEDS: VALSARTAN 40 MG TABLET 160 MG PO ×2 (08:28→20:52)
[2024-12-05] MEDS: amLODIPine BESYLATE 5 MG TABLET PO ×2 (08:29→20:51)
[2024-12-05] MEDS: AMIODARONE HCL 200 MG TABLET PO ×2 (08:29→20:50)
[2024-12-05] MEDS: DIGOXIN INJ 0.25 MG/ML AMP 2 ML 0.125 MG IVP (08:29)
[2024-12-05] MEDS: POTASSIUM CHLORIDE 20 mEq TABCR PO ×2 (08:29→20:51)
[2024-12-05] MEDS: SPIRONOLACTONE 25 MG TABLET PO ×2 (08:30→20:50)
[2024-12-05] MEDS: METOPROLOL SUCCINATE XL 25 MG TABCR 50 MG PO (08:30)
[2024-12-05] MEDS: carVEDILOL 12.5 MG TABLET 25 MG PO ×2 (13:58→22:02)
[2024-12-05] MEDS: PANTOPRAZOLE 40 MG TABLET PO (20:49)
[2024-12-05] MEDS: TEMAZEPAM 15 MG CAPSULE 30 MG PO (22:03)
[2024-12-06] VITALS (56 sets, daily range): BP systolic 104–200; BP diastolic 71–148; PULSE 78–106; RESP 12–94; TEMP 36.3–37.1; O2SAT 92–99
--- NOTE | 2024-12-06 01:42 | ESPR_ITS ---
RE: PREETI FRIEDMAN : 1960 DATE OF SERVICE: 12/05/2024 SUBJECTIVE: The patient is a 64-year-old male with history of congestive heart failure symptoms, severe hypertension, uncontrolled, HFrEF, admitted to the hospital with shortness of breath, acutely decompensated heart failure, responded well to diuretic therapy. OBJECTIVE: Vital Signs: Blood pressure finally controlled at 140/100 , temperature nominal/. Neck: Supple. Lungs: Decreased breath sounds at bases. No rales. Heart: S1, S2, irregular, atrial fibrillation. Abdomen: Thin and soft. Extremities: Mild edema. ASSESSMENT: 1. Atrial fibrillation, rate controlled. 2. Acutely decompression of congestive heart failure, HFrEF, ejection fraction 25-30%. 3. Hypertension, uncontrolled, now controlled well. Recommended continued medical management. 4. Elevated troponin level, type 2 troponin . RECOMMENDATIONS: 1. Continue Lovenox and _ medication for hypertension control. I am changing metoprolol, starting on carvedilol 25 mg three times daily, amlodipine 5 mg twice daily. 2. Continue spironolactone and Bumex and continue monitoring electrolytes closely. 3. He is also continued on amiodarone p.o. 200 mg twice daily, digoxin 125 mcg daily for atrial fibrillation and possible conversion. DT: 23:54:51 TT: 01:35:00 Ref: [id number] - TID: [id number] MTDD
[2024-12-06 05:23] LABS: Basophils % (Auto) 1 % (0-2.5); Eosinophils # (Auto) 0.1 Thou/mm3 (0.0-0.5); Eosinophils % (Auto) 3 % (0-10); Hematocrit 40.8 % (41.0-53.0); Hemoglobin 13.6 g/dL (13.5-16.0); Immature Granulocytes % (Auto) 1 % (0-0); Immature Granulocytes Auto 0.03 Thou/mm3 (0.00-0.00); Lymphocytes # (Auto) 0.8 Thou/mm3 (1.0-4.8); Lymphocytes % (Auto) 17 % (10-50); Mean Corpuscular HGB Conc 33.3 g/dl (31.0-37.0); Mean Corpuscular Hemoglobin 31.4 pg (25.0-35.0); Mean Corpuscular Volume 94 fL (80-100); Monocytes # (Auto) 0.5 Thou/mm3 (0.0-0.8); Monocytes % (Auto) 10 % (0-12); Neutrophils # (Auto) 3.2 Thou/mm3 (1.8-7.7); Neutrophils % (Auto) 69 % (37-80); Nucleated Red Blood Cell % 0 /100 WBC (0); Platelet Count 155 Thou/mm3 (140-440); RDW Standard Deviation 51.8 fL (35.1-43.9); Red Blood Count 4.33 Miln/mm3 (4.50-5.90); White Blood Count 4.7 Thou/mm3 (3.8-10.6)
[2024-12-06] MEDS: carVEDILOL 12.5 MG TABLET 25 MG PO ×3 (06:02→21:43)
[2024-12-06] MEDS: BUMETANIDE INJ 0.25 MG/ML VIAL 4 ML 2 MG IVP (06:03)
[2024-12-06 07:41] LABS: Alanine Aminotransferase 8 U/L (10-49); Albumin, Serum 4.1 gm/dL (3.4-4.8); Albumin/Globulin Ratio 1.9 (1.2-2.2); Alkaline Phosphatase 77 U/L (46-116); Anion Gap 9 (7-16); BUN/Creatinine Ratio 21 Ratio (12-20); Bilirubin,Total 1.2 mg/dL (0.3-1.2); Blood Urea Nitrogen 27 mg/dL (9-23); Calcium 9.2 mg/dL (8.3-10.6); Calcium (Corrected) 9.2 mg/dL (8.5-10.1); Carbon Dioxide 33.2 mMol/L (20.0-31.0); Chloride 101 mMol/L (98-107); Creatinine (Component) 1.3 mg/dL (0.6-1.3); Estimated Creatinine Clearance 83.1 mL/min (>60); Globulin 2.2 gm/dL (2.3-3.5); Glucose 95 mg/dL (74-106); Osmolality,Calculated 290 (275-295); Phosphorous 4.1 mg/dL (2.4-5.1); Potassium 3.3 mMol/L (3.4-5.1); Sodium 143 mMol/L (136-145); Total Protein 6.3 gm/dL (5.7-8.2); eGFR > 60 See Note
[2024-12-06] MEDS: VALSARTAN 40 MG TABLET 160 MG PO ×2 (08:39→21:41)
[2024-12-06] MEDS: SPIRONOLACTONE 25 MG TABLET PO ×2 (08:39→21:40)
[2024-12-06] MEDS: ENOXAPARIN SOD INJ 100 MG/ML SYRINGE SC (08:39)
[2024-12-06] MEDS: AMIODARONE HCL 200 MG TABLET PO ×2 (08:40→21:39)
[2024-12-06] MEDS: DIGOXIN INJ 0.25 MG/ML AMP 2 ML 0.125 MG IVP (08:40)
[2024-12-06] MEDS: POTASSIUM CHLORIDE 20 mEq TABCR PO ×2 (08:40→21:38)
--- NOTE | 2024-12-06 14:26 | ESPR_ITS ---
RE: PREETI FRIEDMAN : 1960 DATE OF SERVICE: 12/06/2024 SUBJECTIVE: The patient is a 64-year-old with a history of hypertension, atrial fibrillation, admitted to the hospital with congestive heart failure, acute decompensated systolic heart failure, low ejection fraction, feeling better now. Blood pressure required multiple medications, finally controlled well now. Not having any chest pain or shortness of breath. Heart rate is about 80s. Atrial fibrillation, rate controlled. Blood pressure 130/100. He is still having some shortness of breath, but he is not having much orthopnea. OBJECTIVE: Neck: Supple. No JVD. Chest: Symmetrical. Lungs: Decreased breath sounds. No rales or rhonchi. Heart: S1 and S2, irregular, atrial fibrillation. No gallops. Abdomen: Thin and soft. Extremities: No edema. Genitourinary and Rectal: Not performed. Neurologic: Normal. LABORATORY DATA: CBC normal. Potassium is slightly low 3.3. BUN and creatinine are 25 and 1.3. IMPRESSION: 1. Acutely decompensated systolic heart failure. 2. Elevated troponin level, possible type 2 troponin versus non-ST elevation myocardial infarction. 3. Atrial fibrillation, rate controlled. 4. Severe hypertension, controlled better now. RECOMMENDATIONS: We will continue medical management, scheduled for right and left heart cardiac catheterization, coronary angiography tomorrow morning. We will transfer the patient to telemetry today. Keep the patient NPO for the procedure tomorrow. Discontinue Lovenox after tonight's dose. DT: 13:35:06 TT: 14:05:00 Ref: [id number] - TID: [id number]
[2024-12-06] MEDS: PANTOPRAZOLE 40 MG TABLET PO (21:41)
[2024-12-06] MEDS: amLODIPine BESYLATE 5 MG TABLET PO (21:43)
[2024-12-06] MEDS: TEMAZEPAM 15 MG CAPSULE 30 MG PO (21:50)
[2024-12-07] VITALS (30 sets, daily range): BP systolic 108–151; BP diastolic 80–111; PULSE 74–97; RESP 13–93; TEMP 36.2–37.1; O2SAT 92–98
--- NOTE | 2024-12-07 01:20 | ESPR_ITS ---
RE: PREETI FRIEDMAN : 1960 DATE OF SERVICE: 12/06/2024 SUBJECTIVE: The patient is doing much better now. We transferred him to telemetry. We will schedule the patient for coronary angiogram tomorrow. OBJECTIVE: Vital Signs: This evening, his blood pressure is 120/80, pulse rate is 90. Neck: Supple. Lungs: Decreased breath sounds. Heart: Heart sounds regular. Abdomen: Thin and soft. Extremities: No edema. IMPRESSION: 1. Atrial fibrillation, rate control. 2. Acute on chronic systolic heart failure, well compensated. 3. Elevated troponin level. RECOMMENDATIONS: We will schedule for coronary angiogram, right and left heart cardiac catheterization tomorrow morning. DT: 23:46:20 TT: 01:18:00 Ref: [id number] - TID: [id number]
[2024-12-07] MEDS: carVEDILOL 12.5 MG TABLET 25 MG PO ×3 (05:07→20:20)
--- NOTE | 2024-12-07 05:22 | PC.NURSE ---
RECEIVED PT TO RM 265 FROM ICU ON W/C. PT AAO X4, NO ACUTE DISTRESS ON ROOM AIR. PT DENIES PAIN. PT ORIENTED TO ROOM,USE OF CALL LIGHT AND UPDATED WITH PLAN OF CARE, PT VERBALIZED UNDERSTANDING.
[2024-12-07 05:49] LABS: Basophils % (Auto) 1 % (0-2.5); Eosinophils # (Auto) 0.2 Thou/mm3 (0.0-0.5); Eosinophils % (Auto) 4 % (0-10); Hemoglobin 13.8 g/dL (13.5-16.0); Immature Granulocytes % (Auto) 1 % (0-0); Immature Granulocytes Auto 0.03 Thou/mm3 (0.00-0.00); Lymphocytes % (Auto) 18 % (10-50); Mean Corpuscular HGB Conc 32.9 g/dl (31.0-37.0); Mean Corpuscular Hemoglobin 31.2 pg (25.0-35.0); Mean Corpuscular Volume 95 fL (80-100); Monocytes # (Auto) 0.6 Thou/mm3 (0.0-0.8); Monocytes % (Auto) 12 % (0-12); Neutrophils # (Auto) 3.4 Thou/mm3 (1.8-7.7); Neutrophils % (Auto) 65 % (37-80); Nucleated Red Blood Cell % 0 /100 WBC (0); Platelet Count 162 Thou/mm3 (140-440); RDW Standard Deviation 51.4 fL (35.1-43.9); Red Blood Count 4.43 Miln/mm3 (4.50-5.90); White Blood Count 5.3 Thou/mm3 (3.8-10.6)
[2024-12-07 06:35] LABS: Alanine Aminotransferase < 7 U/L (10-49); Albumin/Globulin Ratio 1.7 (1.2-2.2); Alkaline Phosphatase 81 U/L (46-116); Anion Gap 11 (7-16); BUN/Creatinine Ratio 23 Ratio (12-20); Bilirubin,Total 1.1 mg/dL (0.3-1.2); Blood Urea Nitrogen 27 mg/dL (9-23); Calcium 9.3 mg/dL (8.3-10.6); Calcium (Corrected) 9.3 mg/dL (8.5-10.1); Carbon Dioxide 34.1 mMol/L (20.0-31.0); Chloride 101 mMol/L (98-107); Creatinine (Component) 1.2 mg/dL (0.6-1.3); Estimated Creatinine Clearance 90.1 mL/min (>60); Globulin 2.3 gm/dL (2.3-3.5); Glucose 97 mg/dL (74-106); Osmolality,Calculated 295 (275-295); Potassium 3.7 mMol/L (3.4-5.1); Sodium 146 mMol/L (136-145); Total Protein 6.3 gm/dL (5.7-8.2); eGFR > 60 See Note
[2024-12-07 06:53] LABS: INR 1.2 (0.9-1.3); Partial Thromboplastin Time 26.9 Seconds (22.0-36.0); Prothrombin Time 12.8 Seconds (9.0-12.2)
[2024-12-07] MEDS: amLODIPine BESYLATE 5 MG TABLET PO ×2 (10:26→20:20)
[2024-12-07] MEDS: VALSARTAN 40 MG TABLET 160 MG PO ×2 (10:27→20:19)
[2024-12-07] MEDS: BUMETANIDE INJ 0.25 MG/ML VIAL 4 ML 2 MG IVP (10:28)
[2024-12-07] MEDS: SPIRONOLACTONE 25 MG TABLET PO ×2 (10:29→20:20)
[2024-12-07] MEDS: AMIODARONE HCL 200 MG TABLET PO ×2 (10:30→20:21)
[2024-12-07] MEDS: POTASSIUM CHLORIDE 20 mEq TABCR PO ×2 (10:30→20:20)
[2024-12-07] MEDS: DIGOXIN INJ 0.25 MG/ML AMP 2 ML 0.125 MG IVP (10:30)
--- NOTE | 2024-12-07 12:33 | PC.NURSE ---
0950 patient is awake, alert, breathing unlabored, s/p LHC, RHC and cardioversion by Dr. Tran, TR band present to right wrist, no bleeding or hematoma noted. Venous sheath has been removed in cath lab nurse OR, dressing to right groin dry with no bleeding or hematoma noted. Report received from Laurie NEW, patient to recover for 2hrs and once TR band removed. 0900 meds due, Dr. Tran stated if BP normal and not low, ok to give all 0900 scheduled meds, pharmacy called to bring medications since BP 134/111. 1030 0900 scheduled medications given including amiodarone, norvasc, kdur, aldactone, diovan, bumex, and digoxin 1050 1m air removed from TR band since venous hemostasis time 0943 1150 TR band removed, no bleeding or hematoma noted, site covered with tegaderm and coban. coban to be removed in 24 hours, tegaderm to be removed in 48 hours. 1200 patient eating lunch 1233 patient is awake, alert, breathing unlabored, dressing to right wrist and right groin dry with no bleeding or hematoma, report has been given to Sebastien childs RN, dr. Tran talk to patient and family and answer all questions, patient ate lunch tray with no nausea or vomiting. Pt voided total of 1300 urine via urinal. Patient transferred back to room 265 with tele box.
--- NOTE | 2024-12-07 15:00 | PC.NURSE ---
Report received from catholic priest. Pt stated no numbness or tingling in right hand post procedure. R radial pulse strong. No bleeding noted on groin or wrist sites.
--- NOTE | 2024-12-07 15:21 | PC.SS ---
rounding note: Pending angiogram
[2024-12-07] MEDS: PANTOPRAZOLE 40 MG TABLET PO (20:20)
[2024-12-07] MEDS: TEMAZEPAM 15 MG CAPSULE 30 MG PO (22:19)
[2024-12-08] VITALS (10 sets, daily range): BP systolic 108–137; BP diastolic 86–98; PULSE 78–96; RESP 18–27; TEMP 36.1–36.9; O2SAT 93–98
--- NOTE | 2024-12-08 01:11 | ESPR_ITS ---
RE: PREETI FRIEDMAN : 1960 DATE OF SERVICE: 12/07/2024 TIME: 7:00 p.m. The patient is a 64-year-old male admitted to the hospital with acutely decompensated congestive heart failure requiring aggressive diuretic therapy and hypertension management. He continues to do fairly well. Heart failure is well treated. Cardiac echo showed evidence of normal filling pressures. Wedge pressure is normal and left ventricular function is severely depressed with an ejection fraction of 25%-30%; however, there is evidence of coronary_ large and widely patent. RCA was dominant and appeared normal. Left coronary system is normal. Clinically, he is feeling better. No shortness of breath or chest pain. OBJECTIVE: Vital Signs: Blood pressure is 120/80, pulse rate is 90, respirations 27. Temperature normal. HEENT: Head is atraumatic, normocephalic. Eyes normal. ENT normal. NECK: Supple. No JVD. Carotid pulse felt, but no bruit. Chest: Symmetrical. Lungs: Clear. Heart: Sounds regular, S4 gallop heard. Abdomen: Thin and soft. Extremities: No edema. Genitourinary and Rectal: Not performed. Neurologic: Normal. IMPRESSION/ASSESSMENT: 1. Atrial fibrillation, persistent, unable to be cardioverted on 3 different occasions, rate controlled. 2. Chronic systolic heart failure with acute decompensation, improved, heart failure with reduced ejection fraction. 3. Severe hypertension. 4. Persistent chronic atrial fibrillation, rate controlled. RECOMMENDATIONS: Continue present medications. We will watch him until tomorrow. 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 DT: 23:53:15 TT: 00:32:00 Ref: [id number] - TID: [id number] MTDD
--- NOTE | 2024-12-08 01:31 | ESOP_ITS ---
RE: PREETI FRIEDMAN : 1960 DATE OF OPERATION: 12/08/2024 PROCEDURES PERFORMED: 1. Diagnostic right and left heart cardiac catheterization, selective coronary angiogram, left ventricular angiogram, CPT 81358. 2. Synchronized cardioversion, CPT code 02159, atrial fibrillation diagnosis. 3. Conscious sedation of 45 minutes of duration. 4. Ultrasound-guided access right radial artery and femoral vein. HISTORY AND INDICATIONS: The patient is a 64-year-old male with a history of hypertension, atrial fibrillation for the last 2-3 months with rapid rates, developed congestive heart failure, acute decompensated systolic heart failure, hypertension, troponin elevation, type 2 myocardial infarction, and troponin elevation. The patient has a cardiac echo show ejection fraction of 25-30%, severe LV dysfunction. Concerned about ischemic cardiomyopathy, hence cardiac catheterization, coronary angiogram recommended. Right and left heart catheterization was recommended to assess right heart pressure as well as assessment of ischemic cardiomyopathy and CAD. The patient also has atrial fibrillation, chronic and recent and persistent and symptomatic hence cardioversion was recommended since the patient is loaded with amiodarone. DESCRIPTION OF PROCEDURE: The patient was brought to cardiac catheterization laboratory. He was given 2 mg of Versed and 100 mcg of fentanyl for sedation. Right radial approach was taken for cardiac catheterization. Right femoral vein was also used for right heart catheterization. Right femoral vein was cannulated by micropuncture technique, 7-[place]cu[place] sheath introduced. Right radial artery cannulated by micropuncture technique, 6-[place] sheath introduced. Right heart catheterization was performed by [place] catheter. Pressures were measured. Left heart catheterization was performed by a 5-[place] TIG 4 diagnostic catheter. Left ventricular angiogram was performed. Subsequently, right coronary angiogram was performed by FL4 diagnostic catheter. Left coronary angiogram was performed by FL4 diagnostic catheter. The patient tolerated the procedure well. No complications. Cardiac catheterization showed following findings. HEMODYNAMICS: Left ventricle pressure 106/90, aortic pressure 112/85. No gradient across aorta. Left ventricular angiogram showed dilated left ventricle with moderate to severe global hypokinesis ejection fraction 25-30%. Right heart cath. Right atrial pressure was found to be 7 mmHg, RV pressure 23/5, PA pressure is 26/19, mean 22, pulmonary artery wedge pressure 20 mmHg. Coronary angiogram showed following findings. Right coronary artery large and dominant, widely patent. PDA, PL branch is normal. Left coronary system. Left main coronary is normal. Left anterior descending artery is normal. Circumflex artery is normal. SUMMARY OF FINDINGS: 1. Nonischemic cardiomyopathy with widely patent coronary arteries. 2. Moderate to severe LV dysfunction, ejection fraction 25-30%. 3. Normal coronary arteries. 4. Well-treated congestive heart failure, still mild elevation of wedge pressure was 20. RECOMMENDATIONS: Continue with diuretic therapy, spironolactone, Bumex orally, possible discharge tomorrow. Continue amiodarone 200 mg twice daily and digoxin 125 daily for atrial fibrillation, rate control and rhythm control and Eliquis 5 mg b.i.d. will be resumed starting tomorrow. Prognosis is fair since he has no significant CAD, but etiology of cardiomyopathy is still uncertain, most likely tachycardic cardiomyopathy versus hypertensive heart disease, chronic uncontrolled versus viral myocarditis idiopathic cardiomyopathy. We will continue medical management including carvedilol 25 mg three times daily for beta-mello, digoxin 125 mcg daily, and amiodarone 200 mg twice daily. Rest of the medications will include Entresto. We will change valsartan to Entresto 49-51 twice daily and at the time of discharge, we will change Entresto one tablet twice daily for discharge. DT: 00:09:18 TT: 01:20:00 Ref: [id number] - TID: [id number] MTDD
[2024-12-08] MEDS: carVEDILOL 12.5 MG TABLET 25 MG PO ×2 (05:23→14:01)
[2024-12-08 06:08] LABS: Basophils % (Auto) 1 % (0-2.5); Eosinophils # (Auto) 0.2 Thou/mm3 (0.0-0.5); Eosinophils % (Auto) 4 % (0-10); Hemoglobin 13.8 g/dL (13.5-16.0); Immature Granulocytes % (Auto) 1 % (0-0); Immature Granulocytes Auto 0.03 Thou/mm3 (0.00-0.00); Lymphocytes # (Auto) 0.9 Thou/mm3 (1.0-4.8); Lymphocytes % (Auto) 19 % (10-50); Mean Corpuscular HGB Conc 32.9 g/dl (31.0-37.0); Mean Corpuscular Hemoglobin 31.4 pg (25.0-35.0); Mean Corpuscular Volume 96 fL (80-100); Monocytes # (Auto) 0.6 Thou/mm3 (0.0-0.8); Monocytes % (Auto) 13 % (0-12); Neutrophils % (Auto) 63 % (37-80); Nucleated Red Blood Cell % 0 /100 WBC (0); Platelet Count 168 Thou/mm3 (140-440); RDW Standard Deviation 52.4 fL (35.1-43.9); White Blood Count 4.8 Thou/mm3 (3.8-10.6)
[2024-12-08 06:37] LABS: Alanine Aminotransferase 8 U/L (10-49); Albumin, Serum 4.1 gm/dL (3.4-4.8); Albumin/Globulin Ratio 1.8 (1.2-2.2); Alkaline Phosphatase 84 U/L (46-116); Anion Gap 8 (7-16); BUN/Creatinine Ratio 21 Ratio (12-20); Bilirubin,Total 1.3 mg/dL (0.3-1.2); Blood Urea Nitrogen 23 mg/dL (9-23); Calcium 9.2 mg/dL (8.3-10.6); Calcium (Corrected) 9.2 mg/dL (8.5-10.1); Carbon Dioxide 34.6 mMol/L (20.0-31.0); Chloride 100 mMol/L (98-107); Creatinine (Component) 1.1 mg/dL (0.6-1.3); Estimated Creatinine Clearance 98.7 mL/min (>60); Globulin 2.3 gm/dL (2.3-3.5); Glucose 104 mg/dL (74-106); Magnesium 1.9 mg/dL (1.6-2.6); Osmolality,Calculated 288 (275-295); Phosphorous 3.4 mg/dL (2.4-5.1); Potassium 3.7 mMol/L (3.4-5.1); Sodium 143 mMol/L (136-145); Total Protein 6.4 gm/dL (5.7-8.2); eGFR > 60 See Note
[2024-12-08] MEDS: DIGOXIN INJ 0.25 MG/ML AMP 2 ML 0.125 MG IVP (09:02)
[2024-12-08] MEDS: BUMETANIDE INJ 0.25 MG/ML VIAL 4 ML 2 MG IVP (09:05)
[2024-12-08] MEDS: VALSARTAN 40 MG TABLET 160 MG PO (09:05)
[2024-12-08] MEDS: SPIRONOLACTONE 25 MG TABLET PO (09:06)
[2024-12-08] MEDS: AMIODARONE HCL 200 MG TABLET PO (09:06)
[2024-12-08] MEDS: amLODIPine BESYLATE 5 MG TABLET PO (09:06)
[2024-12-08] MEDS: POTASSIUM CHLORIDE 20 mEq TABCR PO (09:07)
--- NOTE | 2024-12-08 13:14 | ESDS_ITS ---
Planned Discharge Date 12/08/24 DS: Providers Provider Date of admission: 12/03/24 18:48 Primary care physician: Bruce Lorenzana MD Admitting Provider: Eugene Gomez MD Attending Provider on Admission: Eugene Gomez MD Consults: 12/03/24 18:51 Consult to Cardiology Routine Comment: Consulting Provider: Mary Tran Attending Provider on DC: Mary Tran MD Discharging Provider: Mary Tran MD Anticipated date of discharge: 12/08/24 DS: Diagnosis Discharge Diagnosis (1) Acute on chronic clinical systolic heart failure: Status: Acute Assessment & Plan: The patient had acute decompensated congestive heart failure systolic heart for ejection fraction 25 to 30% with dilated cardiomyopathy diagnosed by bedside echo in my office as well as hospital. This appears to be due to tachycardia cardiomyopathy nonischemic cardiomyopathy possibly viral myocarditis tachycardia cardiomyopathy from A-fib RVR Coronary disease showed no significant CAD CAD confirmed that patient does not have ischemic heart disease. Patient's heart failure aggressive management tends to get in for several days with Bumex improved significantly right heart catheter showed evidence of mildly elevated wedge pressures PA pressures are normal. At the time of discharge he stable optimal guideline directed medical management will be continued. Will be discharging home on diuretic spironolactone bumetanide and also ARB valsartan 320 mg daily beta-mello carvedilol 25 3 times daily. (2) Severe essential hypertension: Status: Acute Assessment & Plan: Blood pressure is controlled well with combination of drugs as above (3) Atrial fibrillation with RVR: Status: Acute Assessment & Plan: Rate controlled will attempt to cardiovert were unsuccessful again patient will be continued amiodarone 200 twice daily digoxin 125 mcg daily for rate control Eliquis 5 mg twice daily for anticoagulation. Will follow-up with student liaison officer as scheduled tomorrow may require another ablation procedure (4) Non-ischemic cardiomyopathy: Status: Acute Assessment & Plan: Optimal guideline directed medical management for heart failure will be continued Problem List Completed Was Problem List Reviewed/Reconciled?: Yes Hospital Course Hospital Course Hospital course: The patient is a 64-year-old male with a longstanding hypertension was difficult to control recent onset atrial fibrillation last 2 or 3 months her A-fib RVR even after ablation could not convert to sinus rhythm came to the office severe shortness of orthopnea acute heart failure symptoms with ejection fraction 25 to 30% due to cardiomyopathy A-fib RVR admitted to ICU for rate control and heart failure management for several days and after 3 days of optimal medical manage improved significantly with good diuresis and renal function with preserved right and left heart cardiac catheterization showed evidence of nonischemic cardiomyopathy mild elevation of wedge pressures PA pressures are normal. Well treated heart failure cardioversion successful discharging the patient home in stable condition the medications as listed will have electrophysiology follow-up tomorrow I will see him in 1 week following discharge. The patient also underwent lower extremity venous duplex no evidence of deep vein thrombosis Time Spent with Patient Time attestation: Total time spent 60 minutesproviding and/or coordinating discharge services: Time spent: Greater than 30 minutes Exam Vital Signs Temp Pulse Resp BP Pulse Ox O2 Del Method O2 Flow Rate 97.0 F 79 24 H 123/92 H 94 L Room Air 2 12/08/24 12:00 12/08/24 12:00 12/08/24 08:00 12/08/24 12:00 12/08/24 12:00 12/08/24 12:00 12/07/24 10:45 FiO2 30 12/08/24 02:40 Narrative Exam The patient well-nourished male alert awake in no acute distress HEENT unremarkable Neck supple no JVD no evidence of heart failure chest metric lungs clear no rales rhonchi Heart S1-S2 irregular atrial fibrillation Abdomen soft benign Extremities no edema rectal not performed neurologic exam normal. Discharge Plan Plan Patient Disposition: HOME (Self Care) Patient condition on transfer: Stable Prescriptions/Referrals Prescriptions/Med Rec: New carvedilol 12.5 mg Tablet 25 mg PO TID 30 Days Qty: 90 4RF amiodarone 200 mg Tablet 200 mg PO BID 30 Days Qty: 60 4RF amlodipine 5 mg Tablet 5 mg PO BID 30 Days Qty: 60 4RF spironolactone 25 mg Tablet 25 mg PO BID 30 Days Qty: 60 4RF pantoprazole 40 mg Tablet,Delayed Release (Dr/Ec) 40 mg PO HS 30 Days Qty: 30 4RF valsartan 320 mg tablet 320 mg PO DAILY 30 Days Qty: 30 4RF digoxin 125 mcg (0.125 mg) tablet 125 mcg PO QDAY 30 Days Qty: 30 3RF bumetanide 2 mg tablet 2 mg PO QDAY 30 Days Qty: 30 4RF Continued Eliquis 5 mg tablet 5 mg PO BID Discontinued metoprolol tartrate 50 mg tablet 50 mg PO BID Qty: 90 2RF diltiazem HCl 240 mg capsule,extended release 24hr 240 mg PO QAM Qty: 90 2RF Referrals: Bruce Lorenzana MD [Primary Care Provider] - Mary Tran MD [Physician] - (1 week) Patient/Caregiver Discharge Instructions Meds to Beds: No Discharge Activity: activity as tolerated Other Discharge Activity Instructions:: Do not lift over 10 lbs for the next week Education Materials: AFL/Afib, Discharge Instructions for ..., Heart Failure Dc Print Language: Malagasy Stand Alone Forms: Rajani Award Info., Patient Portal Info Letter Discharge Order Discharge Orders: Discharge (Routine); Ordered 12/08/24 Ordered By: Mary Tran
--- NOTE | 2024-12-16 00:12 | PD.SUROPNT ---
Date of Procedure 12/07/[address] [address] RE: PREETI FRIEDMAN : 1960 DATE OF OPERATION: 12/07/2024 PROCEDURES PERFORMED: 1. Diagnostic right and left heart cardiac catheterization, selective coronary angiogram, left ventricular angiogram, CPT 77682. 2. Synchronized cardioversion, CPT code 24446, atrial fibrillation diagnosis. 3. Conscious sedation of 45 minutes of duration. 4. Ultrasound-guided access right radial artery and femoral vein. HISTORY AND INDICATIONS: The patient is a 64-year-old male with a history of hypertension, atrial fibrillation for the last 2-3 months with rapid rates, developed congestive heart failure, acute decompensated systolic heart failure, hypertension, troponin elevation, type 2 myocardial infarction, and troponin elevation. The patient has a cardiac echo show ejection fraction of 25-30%, severe LV dysfunction. Concerned about ischemic cardiomyopathy, hence cardiac catheterization, coronary angiogram recommended. Right and left heart catheterization was recommended to assess right heart pressure as well as assessment of ischemic cardiomyopathy and CAD. The patient also has atrial fibrillation, chronic and recent and persistent and symptomatic hence cardioversion was recommended since the patient is loaded with amiodarone. DESCRIPTION OF PROCEDURE: The patient was brought to cardiac catheterization laboratory. He was given 2 mg of Versed and 100 mcg of fentanyl for sedation. Right radial approach was taken for cardiac catheterization. Right femoral vein was also used for right heart catheterization. Right femoral vein was cannulated by micropuncture technique, 7-[place] sheath introduced. Right radial artery cannulated by micropuncture technique, 6-[place] sheath introduced. Right heart catheterization was performed by [place] catheter. Pressures were measured. Left heart catheterization was performed by a 5-[place] TIG 4 diagnostic catheter. Left ventricular angiogram was performed. Subsequently, right coronary angiogram was performed by FL4 diagnostic catheter. Left coronary angiogram was performed by FL4 diagnostic catheter. The patient tolerated the procedure well. No complications. Cardiac catheterization showed following findings. HEMODYNAMICS: Left ventricle pressure 106/90, aortic pressure 112/85. No gradient across aorta. Left ventricular angiogram showed dilated left ventricle with moderate to severe global hypokinesis ejection fraction 25-30%. Right heart cath. Right atrial pressure was found to be 7 mmHg, RV pressure 23/5, PA pressure is 26/19, mean 22, pulmonary artery wedge pressure 20 mmHg. Coronary angiogram showed following findings. Right coronary artery large and dominant, widely patent. PDA, PL branch is normal. Left coronary system. Left main coronary is normal. Left anterior descending artery is normal. Circumflex artery is normal. SUMMARY OF FINDINGS: 1. Nonischemic cardiomyopathy with widely patent coronary arteries. 2. Moderate to severe LV dysfunction, ejection fraction 25-30%. 3. Normal coronary arteries. 4. Well-treated congestive heart failure, still mild elevation of wedge pressure was 20. RECOMMENDATIONS: Continue with diuretic therapy, spironolactone, Bumex orally, possible discharge tomorrow. Continue amiodarone 200 mg twice daily and digoxin 125 daily for atrial fibrillation, rate control and rhythm control and Eliquis 5 mg b.i.d. will be resumed starting tomorrow. Prognosis is fair since he has no significant CAD, but etiology of cardiomyopathy is still uncertain, most likely tachycardic cardiomyopathy versus hypertensive heart disease, chronic uncontrolled versus viral myocarditis idiopathic cardiomyopathy. We will continue medical management including carvedilol 25 mg three times daily for beta-mello, digoxin 125 mcg daily, and amiodarone 200 mg twice daily. Rest of the medications will include Entresto. We will change valsartan to Entresto 49-51 twice daily and at the time of discharge, we will change Entresto one tablet twice daily for discharge. DT: 00:09:18 TT: 01:20:00 Ref: [id number] - TID: [id number] CC: Bruce Lorenzana; ~ Dictated by:Mary Tran MD 12/08/24 0009 E-signed by:aMry Tran MD 12/08/24 1208 E-Signed by: E-Signed by: REPORT NO:[id number] Findings see Pathology / specimen None Estimated Blood Loss 0 Surgeon Mary Tran MD Surgical Staff Operation Date: 12/07/24 08:30 <No data on this case meets the specified criteria>
== END 2024-12-08 15:11 | disposition home or self-care (01) | DRG 280 ==
LOC: SERX 18:37 → SERHOLD 19:11 → S2SX 12-04 05:55 → S2NX 12-07 05:22
PROVIDERS: Internal Medicine Cardiovascular Disease; Student in an Organized Health Care Education/Training Program; Admitting Provider Student in an Organized Health Care Education/Training Program; Emergency Provider Emergency Medicine; PCP Internal Medicine; Visit Provider Student in an Organized Health Care Education/Training Program
PROC: 4A023N8 Measurement of Cardiac Sampling and Pressure, Bilateral, Percutaneous Approach (ICD-10-PCS; principal; 2024-12-07 08:30)
DX: I11.0 Hypertensive heart disease with heart failure (principal); I50.23 Acute on chronic systolic (congestive) heart failure; I21.A1 Myocardial infarction type 2; I48.19 Other persistent atrial fibrillation; J45.909 Unspecified asthma, uncomplicated; G47.33 Obstructive sleep apnea (adult) (pediatric); I16.0 Hypertensive urgency; M10.9 Gout, unspecified; G47.00 Insomnia, unspecified; E78.00 Pure hypercholesterolemia, unspecified; F41.9 Anxiety disorder, unspecified; Z79.01 Long term (current) use of anticoagulants; Z79.899 Other long term (current) drug therapy; Z96.619 Presence of unspecified artificial shoulder joint; Z96.651 Presence of right artificial knee joint
CPT/HCPCS: 36415; 71045; 80053; 83735; 83880; 84100; 84484; 85025; 85610; 85730; 87811; 93005; 93306; 93970; 94660; 96365; 96375; 99152; 99153; 99285; A4649; C1769; C1887; C1894; J0153; J0171; J0282; J0283; J0461; J1160; J1643; J1650; J2250; J2310; J2371; J3010; J3475; J3490; Q9967; A9270; C1725; J2305

== ENCOUNTER → 2025-02-18 | Outpatient (CLI) | payer BC, SELFPAY ==
[2025-02-18 10:50] LABS: B-Type Natriuretic Peptide < 20 pg/mL (0-100)
[2025-02-18 10:55] LABS: Alanine Aminotransferase 24 U/L (10-49); Albumin, Serum 4.6 gm/dL (3.4-4.8); Alkaline Phosphatase 82 U/L (46-116); Anion Gap 11 (7-16); Aspartate Amino Transferase 25 U/L (0-34); BUN/Creatinine Ratio 29 Ratio (12-20); Bilirubin,Direct 0.1 mg/dL (0.0-0.3); Bilirubin,Total 0.4 mg/dL (0.3-1.2); Blood Urea Nitrogen 60 mg/dL (9-23); Calcium 10.4 mg/dL (8.3-10.6); Carbon Dioxide 23.4 mMol/L (20.0-31.0); Chloride 105 mMol/L (98-107); Creatine Kinase 76 U/L (34-171); Creatinine (Component) 2.1 mg/dL (0.6-1.3); Glucose 113 mg/dL (74-106); Osmolality,Calculated 295 (275-295); Phosphorous 4.9 mg/dL (2.4-5.1); Potassium 5.0 mMol/L (3.4-5.1); Sodium 139 mMol/L (136-145); Thyroid Stimulating Hormone 4.67 uIU/mL (0.55-4.78); Total Protein 7.1 gm/dL (5.7-8.2); eGFR 35 See Note
[2025-02-18 11:00] LABS: T4 (Thyroxine) 5.9 mcg/dL (4.5-10.9)
[2025-02-24 06:30] LABS: hs-CRP* 0.3 mg/L
== END | disposition home or self-care (01) ==
PROVIDERS: PCP Internal Medicine; Referring Provider Internal Medicine Cardiovascular Disease; Visit Provider Internal Medicine Cardiovascular Disease
DX: I50.22 Chronic systolic (congestive) heart failure (principal); I48.21 Permanent atrial fibrillation; I20.89 Other forms of angina pectoris; I42.9 Cardiomyopathy, unspecified
CPT/HCPCS: 36415; 80048; 80076; 82550; 83880; 84100; 84436; 84443; 86141

== ENCOUNTER → 2025-03-22 | Outpatient (CLI) | payer BC, SELFPAY ==
[2025-03-22 10:20] LABS: Albumin, Serum 4.7 gm/dL (3.4-4.8); Anion Gap 8 (7-16); BUN/Creatinine Ratio 24 Ratio (12-20); Blood Urea Nitrogen 48 mg/dL (9-23); Calcium 9.9 mg/dL (8.3-10.6); Calcium (Corrected) 9.9 mg/dL (8.5-10.1); Carbon Dioxide 23.8 mMol/L (20.0-31.0); Chloride 108 mMol/L (98-107); Creatinine (Component) 2.0 mg/dL (0.6-1.3); Glucose 107 mg/dL (74-106); Osmolality,Calculated 292 (275-295); Phosphorous 4.7 mg/dL (2.4-5.1); Potassium 5.4 mMol/L (3.4-5.1); Sodium 140 mMol/L (136-145); eGFR 37 See Note
== END | disposition home or self-care (01) ==
LOC: COPL 09:19
PROVIDERS: PCP Internal Medicine; Referring Provider Internal Medicine Cardiovascular Disease; Visit Provider Internal Medicine Cardiovascular Disease
DX: I50.22 Chronic systolic (congestive) heart failure (principal)
CPT/HCPCS: 36415; 80069

== ENCOUNTER → 2025-04-23 | Outpatient (CLI) | payer BC, SELFPAY ==
[2025-04-23 11:10] LABS: Albumin, Serum 4.5 gm/dL (3.4-4.8); Anion Gap 9 (7-16); BUN/Creatinine Ratio 12 Ratio (12-20); Blood Urea Nitrogen 17 mg/dL (9-23); Calcium 9.4 mg/dL (8.3-10.6); Calcium (Corrected) 9.4 mg/dL (8.5-10.1); Carbon Dioxide 28.2 mMol/L (20.0-31.0); Chloride 107 mMol/L (98-107); Creatinine (Component) 1.4 mg/dL (0.6-1.3); Glucose 96 mg/dL (74-106); Osmolality,Calculated 288 (275-295); Phosphorous 4.0 mg/dL (2.4-5.1); Potassium 4.5 mMol/L (3.4-5.1); Sodium 144 mMol/L (136-145); eGFR 56 See Note
== END | disposition home or self-care (01) ==
LOC: COPL 09:47
PROVIDERS: PCP Internal Medicine; Referring Provider Internal Medicine Cardiovascular Disease; Visit Provider Internal Medicine Cardiovascular Disease
DX: I50.22 Chronic systolic (congestive) heart failure (principal)
CPT/HCPCS: 36415; 80069

== ENCOUNTER → 2025-05-26 | Outpatient (CLI) | payer BC, SELFPAY ==
[2025-05-26 10:29] LABS: Albumin, Serum 4.7 gm/dL (3.4-4.8); Anion Gap 9 (7-16); BUN/Creatinine Ratio 15 Ratio (12-20); Blood Urea Nitrogen 18 mg/dL (9-23); Calcium 9.9 mg/dL (8.3-10.6); Calcium (Corrected) 9.9 mg/dL (8.5-10.1); Carbon Dioxide 29.9 mMol/L (20.0-31.0); Chloride 106 mMol/L (98-107); Creatinine (Component) 1.2 mg/dL (0.6-1.3); Glucose 99 mg/dL (74-106); Osmolality,Calculated 290 (275-295); Phosphorous 3.8 mg/dL (2.4-5.1); Potassium 4.0 mMol/L (3.4-5.1); Sodium 145 mMol/L (136-145); eGFR > 60 See Note
== END | disposition home or self-care (01) ==
PROVIDERS: PCP Internal Medicine; Referring Provider Internal Medicine Cardiovascular Disease; Visit Provider Internal Medicine Cardiovascular Disease
DX: I50.22 Chronic systolic (congestive) heart failure (principal)
CPT/HCPCS: 36415; 80069